=== PATIENT | female | born 1980 | race Hispanic/Latino ===

== ENCOUNTER 2022-07-23 03:54 | Emergency (ER) | payer SELFPAY ==
--- OUTSIDE RECORDS SUMMARY | 2022-07-23 03:59 | XMS REPORT | Continuity of Care Document ---
:1980 Author Organization [facility] t Address [address] [place] [address] Care Team Providers Name Role Phone Erin Maravilla Primary Care Physician [phone] ELIAZAR LÓPEZ Attending Clinician Unavailable Doctor Unassigned, [place] Attending Clinician Unavailable Rosemary German RN Attending Clinician Unavailable Pcp, Patient Does Not Have A Attending Clinician [phone] Lab, Adc Fam Pob I Attending Clinician Unavailable Yamilet Yap Attending Clinician Payers Payer Name Policy Type Policy Number Effective Date Expiration Date S ource Problems Condition Condition Condition Status Onset Resolution Last Treating Co mments Source Name Details Category Date Date Treatment Clinician Date Acute Acute Disease Active 2016-06 Univers cystitis cystitis 0-02 ity of without without 00:00: [place] hematuria hematuria 00 [facility] Branch Chlamydia Chlamydia Disease Active Uni vers trachomati trachomati 1-24 it y of s s 00:00: [place] infection infection 00 Medi leigh of lower of lower Branch genitourin genitourin aysha sites aysha sites 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 04/2015 LEEP with TIMBO III, needs annual pap for 20 years Dyspareuni Dyspareuni Disease Active 2015-06 U nivers a in a in 0-05 ity of female female 00:00: [place] 00 Medical Branch History of History of Disease Active U nivers tubal tubal 9-23 ity of ligation ligation 00:00: [address] Overweight Overweight Disease Active Overview : Univers -12 Formattin ity of 00:00: g of this [place] 00 note Medical might be Branch different from the original. ICD10 Diagnosis Term Chemistry Faculty Member Utility Allergies, Adverse Reactions, Alerts Allergy Allergy Status Severity Reaction(s) Onset Inactive Treating Comm ents Source Name Type Date Date Clinician NO KNOWN Drug Active Univers ALLERGIE Class ity of [facility] Social History Social Habit Start Date Stop Date Quantity Comments Source Exposure to Yes [facility] SARS-CoV-2 [facility] (event) Branch Tobacco use and 2016-09-18 2016-09-18 Never used Universit y of exposure 00:00:00 00:00:00 [facility] Alcohol intake 2016-09-18 2016-09-18 Current [facility] 00:00:00 00:00:00 non-drinker of [facility] alcohol Branch (finding) Sex Assigned At [birth year] Universit y of 00:00:00 00:00:00 [facility] Smoking Status Start Date Stop Date Source Never smoker [facility] Medications Ordered Filled Start Stop Current Ordering Indication Dosage Frequency Signature Comments Components Source Medication Medication Date Date Medication? Clinician (SIG) Name Name TAKE 1 No TABLET 9-26 DAILY. 00:00: 00 Dose 2021-0 No Unknown 8-12 00:00: 00 Dose 2021-0 No Unknown 8-12 00:00: 00 Dose 2021-0 No Unknown 6-04 00:00: 00 Dose 2021-0 No Unknown 6-04 00:00: 00 Dose 2021-0 No Unknown 6-04 00:00: 00 Dose 2021-0 No Unknown 6-04 00:00: 00 Dose 2022-0 No Unknown 6-02 00:00: 00 Dose 2-0 No Unknown 6-02 00:00: 00 Dose 2021-0 No Unknown 5-26 00:00: 00 Dose 2021-0 No Unknown 5-26 00:00: 00 Dose 2022-0 No Unknown 5-24 00:00: 00 Dose 2022-0 No Unknown 5-24 00:00: 00 Dose 2022-0 No Unknown 5-24 00:00: 00 Dose 2022-0 No Unknown 5-24 00:00: 00 Dose 2022-0 No Unknown 5-24 00:00: 00 Dose 2022-0 No Unknown 5-24 00:00: 00 Dose 2022-0 No Unknown 5-24 00:00: 00 Dose 2022-0 No Unknown 5-24 00:00: 00 Dose 2022-0 No Unknown 5-24 00:00: 00 Dose 2022-0 No Unknown 5-24 00:00: 00 Dose 2022-0 No Unknown 5-24 00:00: 00 Dose 2022-0 No Unknown 5-24 00:00: 00 Dose 2022-0 No Unknown 5-24 00:00: 00 Dose 2022-0 No Unknown 5-24 00:00: 00 Dose 2022-0 No Unknown 5-24 00:00: 00 Dose 2022-0 No Unknown 5-24 00:00: 00 Dose 2022-0 No Unknown 5-24 00:00: 00 Dose 2022-0 No Unknown 5-24 00:00: 00 triamcinolo 2021-0 No 1% ne 6-08 acetonide 00:00: 0.1 % 00 topical cream doxycycline 1-0 No 1mg monohydrate 6-08 100 mg 00:00: capsule 00 triamcinolo 2021-0 No 1% ne 6-08 acetonide 00:00: 0.1 % 00 topical cream doxycycline 1-0 No 1mg monohydrate 6-08 100 mg 00:00: capsule 00 Flagyl 500 1-0 No 1mg mg tablet 06-21 00:00: 00 Flagyl 500 1-0 No 1mg mg tablet 06-21 00:00: 00 Cipro 250 2020-0 No 1mg mg tablet 6 00:00: 00 Cipro 250 2020-0 No 1mg mg tablet 11-16 00:00: 00 ciprofloxac 2019-1 No 1mg in 500 mg 2-13 tablet 00:00: 00 ciprofloxac 2019-1 No 1mg in 500 mg 2-13 tablet 00:00: 00 Macrobid 2019-1 No 1mg 100 mg 1-23 capsule 00:00: 00 Macrobid 2019-1 No 1mg 100 mg 1-23 capsule 00:00: 00 phenazopyri 2019-1 No 1mg dine 200 mg 1-19 tablet 00:00: 00 phenazopyri 2019-1 No 1mg dine 200 mg 1-19 tablet 00:00: 00 ciprofloxac 2019-0 No 1mg in 500 mg 7-16 tablet 00:00: 00 ciprofloxac 2018-0 No 1mg in 500 mg 7-16 tablet 00:00: 00 cyclobenzap 2018-0 No 12mg rine 5 mg 1-22 tablet 00:00: 00 prednisone 2019-0 No mg 20 mg 1-22 tablet 00:00: 00 cyclobenzap 2018-0 No 12mg rine 5 mg 1-22 tablet 00:00: 00 prednisone 2019-0 No mg 20 mg 1-22 tablet 00:00: 00 nitrofurant 2017-06 No 1mg oin 0-12 monohydrate 00:00: /macrocryst 00 als 100 mg capsule nitrofurant 2017-06 No 1mg oin 0-12 monohydrate 00:00: /macrocryst 00 als 100 mg capsule cephalexin 2017-06 No 1mg 500 mg 0-10 capsule 00:00: 00 cephalexin 2017-06 No 1mg 500 mg 0-10 capsule 00:00: 00 Nitrofurant 2016-06 Yes 100mg Take 1 Uni vers oin&Nit. 0-07 capsule by ity o f Macrocryst 00[place]00[place] 00 (two) Medical capsule times Branch daily. Nitrofurant 2016-06 Yes 100mg Take 1 Uni vers oin&Nit. 0-07 capsule by ity o f Macrocryst 00:00: mouth [place] 100 mg 00 (two) Medical capsule times Branch daily. Nitrofurant 2016-06 Yes 100mg Take 1 Uni vers oin&Nit. 0-07 capsule by ity o f Macrocryst 00:00: mouth [place] 100 mg 00 (two) Medical capsule times Branch daily. Nitrofurant 2016-06 Yes 100mg Take 1 Uni vers oin&Nit. 0-07 capsule by ity o f Macrocryst 00:00: mouth [place] 100 mg 00 (two) Medical capsule times Branch daily. Nitrofurant 2016-06 Yes 100mg Take 1 Uni vers oin&Nit. 0-07 capsule by ity o f Macrocryst 00:00: mouth [place] 100 mg 00 (two) Medical capsule times Branch daily. sulfamethox Yes [id number] Take twice Univers azole-trime 4-12 daily for ity of thoprim 00:00: 10 days [place] 800-160 mg 00 Medical per tablet Branch sulfamethox 2017-0 Yes [id number] Take twice Univers azole-trime 4-12 daily for ity of thoprim 00:00: 10 days [place] 800-160 mg 00 Medical per tablet Branch sulfamethox 2017-0 Yes [id number] Take twice Univers azole-trime 4-12 daily for ity of thoprim 00:00: 10 days [place] 800-160 mg 00 Medical per tablet Branch sulfamethox 2017-0 Yes [id number] Take twice Univers azole-trime 4-12 daily for ity of thoprim 00:00: 10 days [place] 800-160 mg 00 Medical per tablet Branch sulfamethox 20170 Yes [id number] Take twice Univers azole-trime 4-12 daily for ity of thoprim 00:00: 10 days [place] 800-160 mg 00 Medical per tablet Branch norethindro 20170 Yes [id number] 1{tbl} Take 1 Univers ne-e.estrad 4-10 tablet by ity of iol-iron 00:00: mouth [place] (MICROGESTI 00 daily. Medica l N FE) 1.5 Branch mg-30 mcg (21)/75 mg (7) per tablet norethindro 0 Yes [id number] 1{tbl} Take 1 Univers ne-e.estrad 4-10 tablet by ity of iol-iron 00:00: mouth [place] (MICROGESTI 00 daily. Medica l N FE) 1.5 Branch mg-30 mcg (21)/75 mg (7) per tablet norethindro Yes [id number] 1{tbl} Take 1 Univers ne-e.estrad 4-10 tablet by ity of iol-iron 00:00: mouth [place] (MICROGESTI 00 daily. Medica l N FE) 1.5 Branch mg-30 mcg (21)/75 mg (7) per tablet norethindro Yes [id number] 1{tbl} Take 1 Univers ne-e.estrad 4-10 tablet by ity of iol-iron 00:00: mouth [place] (MICROGESTI 00 daily. Medica l N FE) 1.5 Branch mg-30 mcg (21)/75 mg (7) per tablet norethindro 2017- Yes [id number] 1{tbl} Take 1 Univers ne-e.estrad 4-10 tablet by ity of iol-iron 00:00: mouth [place] (MICROGESTI 00 daily. Medica l N FE) 1.5 Branch mg-30 mcg (21)/75 mg (7) per tablet Norethindro 2017- Yes [id number] 1{tbl} Take 1 Univers ne 1-03 tablet by ity of Acet-Ethiny 00:00: mouth [place] l Est 00 daily. Medical ([facility] , ,) 1.5-30 mg-mcg per tablet Norethindro 2017- Yes [id number] 1{tbl} Take 1 Univers ne 1-03 tablet by ity of Acet-Ethiny 00:00: mouth [place] l Est 00 daily. Medical ([facility] , ,) 1.5-30 mg-mcg per tablet Norethindro 2017 Yes [id number] 1{tbl} Take 1 Univers ne 1-03 tablet by ity of Acet-Ethiny 00:00: mouth [place] l Est 00 daily. Medical ([facility] , ,) 1.5-30 mg-mcg per tablet Norethindro 2017- Yes [id number] 1{tbl} Take 1 Univers ne 1-03 tablet by ity of Acet-Ethiny 00:00: mouth [place] l Est 00 daily. Medical ([facility] , ,) 1.5-30 mg-mcg per tablet Norethindro 2017- Yes [id number] 1{tbl} Take 1 Univers ne 1-03 tablet by ity of Acet-Ethiny 00:00: mouth [place] l Est 00 daily. Medical ([facility] , ,) 1.5-30 mg-mcg per tablet Immunizations Ordered Filled Immunization Date Status Comments [facility] e Immunization Name Name Sharron COVID-19 2020-10-05 Completed Vaccine 00:00:00 Moderna COVID-19 2020-10-05 Completed Vaccine 00:00:00 Moderna COVID-19 2020-09-02 Completed Vaccine 00:00:00 Moderna COVID-19 2020-09-02 Completed Vaccine 00:00:00 Influenza, 2020-06-18 Completed seasonal, inj 00:00:00 Influenza, 2020-06-18 Completed seasonal, inj 00:00:00 Tdap 2018-03-20 Completed 00:00:00 Tdap 2018-03-20 Completed 00:00:00 TDAP 2014-02-20 [facility] Completed [facility] 00:00:00 [facility] Vital Signs Vital Name Observation Time Observation Value Comments Source BP Systolic 2022-03-15 16:06:00 123 mm[Hg] BP Diastolic 2022-03-15 16:06:00 83 mm[Hg] Weight Measured 2022-03-15 16:06:00 148.80 pounds Height Measured 2022-03-15 16:06:00 63.00 inches Body Temperature 2022-03-15 16:06:00 97.20 degrees Heart Rate 2022-03-15 16:06:00 79.00 /min Respiratory Rate 2022-03-15 16:06:00 19.00 /min BP Systolic 2022-03-03 12:09:00 121 mm[Hg] BP Diastolic 2022-03-03 12:09:00 86 mm[Hg] Weight Measured 2022-03-03 12:09:00 152.00 pounds Height Measured 2022-03-03 12:09:00 63.00 inches Body Temperature 2022-03-03 12:09:00 98.30 degrees Heart Rate 2022-03-03 12:09:00 89.00 /min Respiratory Rate 2022-03-03 12:09:00 18.00 /min Height Measured 2021-11-19 14:13:00 63.00 inches Body Temperature 2021-11-19 14:13:00 97.90 degrees Heart Rate 2021-11-19 14:13:00 85.00 /min Respiratory Rate 2021-11-19 14:13:00 BP Systolic 2021-11-19 14:13:00 125 mm[Hg] BP Diastolic 2021-11-19 14:13:00 85 mm[Hg] Weight Measured 2021-11-19 14:13:00 151.20 pounds BP Systolic 2021-11-01 08:42:00 125 mm[Hg] BP Diastolic 2021-11-01 08:42:00 86 mm[Hg] Weight Measured 2021-11-01 08:42:00 150.40 pounds Height Measured 2021-11-01 08:42:00 63.00 inches Body Temperature 2021-11-01 08:42:00 98.30 degrees Heart Rate 2021-11-01 08:42:00 70.00 /min Respiratory Rate 2021-11-01 08:42:00 18.00 /min BP Systolic 2020-11-16 10:16:00 130 mm[Hg] BP Diastolic 2020-11-16 10:16:00 83 mm[Hg] Weight Measured 2020-11-16 10:16:00 145.80 pounds Height Measured 2020-11-16 10:16:00 63.00 inches Body Temperature 2020-11-16 10:16:00 98.00 degrees Heart Rate 2020-11-16 10:16:00 59.00 /min Respiratory Rate 2020-11-16 10:16:00 18.00 /min BP Systolic 2020-06-21 15:07:00 124 mm[Hg] BP Diastolic 2020-06-21 15:07:00 82 mm[Hg] Weight Measured 2020-06-21 15:07:00 148.40 pounds Height Measured 2020-06-21 15:07:00 63.00 inches Body Temperature 2020-06-21 15:07:00 98.20 degrees Heart Rate 2020-06-21 15:07:00 Respiratory Rate 2020-06-21 15:07:00 BP Systolic 2020-06-18 15:33:00 133 mm[Hg] BP Diastolic 2020-06-18 15:33:00 90 mm[Hg] Weight Measured 2020-06-18 15:33:00 146.20 pounds Height Measured 2020-06-18 15:33:00 63.00 inches Body Temperature 2020-06-18 15:33:00 98.00 degrees Heart Rate 2020-06-18 15:33:00 95.00 /min Respiratory Rate 2020-06-18 15:33:00 16.00 /min BP Systolic 2019-11-17 09:43:00 124 mm[Hg] BP Diastolic 2019-11-17 09:43:00 80 mm[Hg] Weight Measured 2019-11-17 09:43:00 147.20 pounds Height Measured 2019-11-17 09:43:00 63.00 inches Body Temperature 2019-11-17 09:43:00 98.40 degrees Heart Rate 2019-11-17 09:43:00 69.00 /min Respiratory Rate 2019-11-17 09:43:00 16.00 /min BP Systolic 2019-08-22 15:52:00 138 mm[Hg] BP Diastolic 2019-08-22 15:52:00 95 mm[Hg] Weight Measured 2019-08-22 15:52:00 143.20 pounds Height Measured 2019-08-22 15:52:00 63.00 inches Body Temperature 2019-08-22 15:52:00 98.90 degrees Heart Rate 2019-08-22 15:52:00 83.00 /min Respiratory Rate 2019-08-22 15:52:00 16.00 /min BP Systolic 2019-08-18 11:43:00 124 mm[Hg] BP Diastolic 2019-08-18 11:43:00 72 mm[Hg] Weight Measured 2019-08-18 11:43:00 145.80 pounds Height Measured 2019-08-18 11:43:00 63.00 inches Body Temperature 2019-08-18 11:43:00 98.00 degrees Heart Rate 2019-08-18 11:43:00 74.00 /min Respiratory Rate 2019-08-18 11:43:00 16.00 /min BP Systolic 2019-04-29 16:30:00 128 mm[Hg] BP Diastolic 2019-04-29 16:30:00 79 mm[Hg] Weight Measured 2019-04-29 16:30:00 145.20 pounds Height Measured 2019-04-29 16:30:00 63.00 inches Body Temperature 2019-04-29 16:30:00 99.20 degrees Heart Rate 2019-04-29 16:30:00 93.00 /min Respiratory Rate 2019-04-29 16:30:00 Procedures Procedure Date / Time Performed Performing Clinician [facility] e REFERRAL- 2020-11-16 05:01:00 Doctor Unassigned, No Univer mary lou [facility] REQUEST/RESPONSE Name Medical Branch Plan of Care Planned Activity Planned Date Details Comments Source Goal Plan of Care Note [code = 48685-8] Goal Plan of Care Note [code = 49413-7] Goal Plan of Care Note [code = 37110-5] Goal Plan of Care Note [code = 99896-6] Goal Plan of Care Note [code = 01755-7] Goal Plan of Care Note [code = 48923-8] Goal Plan of Care Note [code = 19315-8] Goal Plan of Care Note [code = 86050-7] Goal Plan of Care Note [code = 40165-8] Goal Plan of Care Note [code = 07177-7] Goal Plan of Care Note [code = 17008-0] Goal Plan of Care Note [code = 44006-1] Goal Plan of Care Note [code = 85587-8] Goal Plan of Care Note [code = 10569-4] Goal Plan of Care Note [code = 51665-8] Goal Plan of Care Note [code = 45959-1] Goal Plan of Care Note [code = 11239-0] Goal Plan of Care Note [code = 11394-0] Goal Plan of Care Note [code = 37403-3] Goal Plan of Care Note [code = 16957-4] Goal Plan of Care Note [code = 78201-7] Goal Plan of Care Note [code = 79540-5] Goal Plan of Care Note [code = 81723-7] Goal Plan of Care Note [code = 50850-3] Goal Plan of Care Note [code = 71481-5] Goal Plan of Care Note [code = 45006-0] Goal Plan of Care Note [code = 74071-6] Goal Plan of Care Note [code = 64566-6] Goal Plan of Care Note [code = 64203-3] Goal Plan of Care Note [code = 06384-6] Goal Plan of Care Note [code = 95682-4] Goal Plan of Care Note [code = 31878-1] Goal Plan of Care Note [code = 55790-8] Goal Plan of Care Note [code = 93568-9] Goal Plan of Care Note [code = 18094-1] Goal Plan of Care Note [code = 67889-1] Goal Plan of Care Note [code = 13740-1] Goal Plan of Care Note [code = 87452-9] Goal Plan of Care Note [code = 42899-6] Goal Plan of Care Note [code = 24451-6] Goal Plan of Care Note [code = 65777-3] Goal Plan of Care Note [code = 15730-4] Goal Plan of Care Note [code = 12794-5] Goal Plan of Care Note [code = 94202-8] Goal Plan of Care Note [code = 87072-3] Goal Plan of Care Note [code = 12155-8] Goal Plan of Care Note [code = 42951-5] Goal Plan of Care Note [code = 41750-0] Goal Plan of Care Note [code = 78537-9] Goal Plan of Care Note [code = 96730-8] Goal Plan of Care Note [code = 50587-3] Goal Plan of Care Note [code = 02677-9] Goal Plan of Care Note [code = 24662-7] Goal Plan of Care Note [code = 98759-4] Goal Plan of Care Note [code = 58002-7] Goal Plan of Care Note [code = 22866-0] Goal Plan of Care Note [code = 45977-2] Goal Plan of Care Note [code = 11419-8] Goal Plan of Care Note [code = 81587-0] Goal Plan of Care Note [code = 69616-3] Goal Plan of Care Note [code = 80713-6] Goal Plan of Care Note [code = 97323-0] Encounters Start End Encounter Admission Attending Care Care Encounter Source Date/Time Date/Time Type Type Clinicians Facility Department ID 2022-05-01 2022-05-01 Outpatient ADEEL DENIS [id number] [place] 08:49:56 08:49:56 [address] 2022-03-15 2022-03-15 Outpatient ADEEL DENIS [id number] [place] 16:05:15 16:05:15 [address] 2022-03-15 2022-03-15 Outpatient [id number] 00:00:00 00:00:00 Visit [id number] 2022-03-03 2022-03-03 Outpatient [id number] 00:00:00 00:00:00 Visit [id number] 2020-11-23 2020-11-23 Outpatient Monika LÓPEZ [facility] [id number] Univers 14:15:00 14:15:00 ELIAZAR varma [facility] 2020-11-16 2020-11-16 Orders Doctor TAYLOR [id number] Univers 00:00:00 00:00:00 Only Unassigned, RUSSELL 350.1.13.10 ity of [place] [facility] 4.2.7.2.686 Yousif as [phone] [address] 2020-08-25 2020-08-25 Letter TAYLOR [id number] Univers 00:00:00 00:00:00 (Out) Rosemary WELLS 350.1.13.10 it y of HOSPITAL 4.2.7.2.686 Yousif as [id number] [address] 2020-08-25 2020-08-25 Letter TAYLOR German.[id number] Univers 00:00:00 00:00:00 (Out) Rosemary T RUSSELL 350.1.13.10 it y of HOSPITAL 4.2.7.2.686 Yousif as [id number] [address] 2020-08-25 2020-08-25 Telephone [id number] Univers 00:00:00 00:00:00 Patient RUSSELL 350.1.13.10 it y of Does Not [place]OSP[place] [phone] [address] 2020-08-23 2020-08-23 Laboratory Lab, Adc Fam Pob I [facility] 1.2. [id number] [id number] Univers 17:02:55 17:22:55 Only Yamilet Nixon 350.1.13.[address] [facility] 4.2.7.2.686 Yousif as Profdoyleio [id number] Pr dical [place] [address] [address] 2020-08-23 2020-08-23 Outpatient R [facility] [id number] Univers 17:00:00 17:00:00 [facility] Results Test Description Test Time Test Comments Results Result Sour e Comments BREAST ULTRASOUND 2022-04-19 BILATERAL 13:46:37 Name: , Tata Mancia : 1980 Sex: F - BREAST ULTRASOUND BILATERALCOMPLETE ULTRASOUND OF BOTH BREASTS AND AXILLA: 2CLINICAL: Screening recall,bilateral. Comparison is made to exam dated 03/03/2022 mammogram - [facility]. Color flow and real-time ultrasound of both breasts four quadrants, retroareolar, and axilla regions were performed. The breast tissue has heterogenous background echotexture. Bilateral survey ultrasound demonstrates multiple similar appearing solid oval masses the largest one in the left breast at 7:00, 2 cm on nipple that measures 18 x 14 x 8 mm characteristics include oval shape, circumscribed margins, hypoechoic echogenicity but no internal vascularity. No axillary lymphadenopathy.IMPRESS ION: PROBABLY BENIGN Multiple oval, circumscribed similar appearing solid oval masses in both breasts on this baseline examination. BI-RADS 3. A follow-up ultrasound in 6 months is recommended to demonstrate stability. (10/19/2022) Naun Diamond M.D. ss/:04/19/2022 13:46:37 Entry: sj - 04/19/2022 14:34:16Imaging Technologist: Ashley Benitez FW, [facility]-FWletter sent: Short Term Follow Up Ultrasound BI-RADS: 3 Probably benign SCR MAMM 2022-03-06 BILATERAL REINALDO 10:01:13 CAD DIGITAL Name: Tata : 1980 Sex: F - SCR MAMM BILATERAL REINALDO CAD DIGITALBILATERAL FIRST EVER DIGITAL SCREENING MAMMOGRAM 3D/2D WITH CAD: 03/03/2022LINICAL: Asymptomatic. Digital breast tomosynthesis was performed in addition to routine CC and MLO views. Current mammographic images were evaluated by [employer] CAD (computer-aided detection) software. No prior exams were available for comparison. There are scattered fibroglandular tissues in both breasts. There are bilateral circumscribed low density masses.No spiculated mass, architectural distortion, malignant type calcification, or lymph node abnormality detected. IMPRESSION: INCOMPLETE: ADDITIONAL IMAGING EVALUATION NEEDEDThe bilateral circumscribed masses are indeterminate. Recommend bilateral breast ultrasound and possible additional views.Ayla Shankar M.D. [facility]/:03/06/2022 10:01:13 Crate Repairer: Colleen Cervantes MM, [facility] sent: Additional Imaging Mammogram BI-RADS: 0 Incomplete: Additional Imaging Evaluation Needed PAP TEST, THINPREP, IMAGED 2021-11-24 07:45:29 Test Item Value Reference Range Interpretation Comme nts SOURCE: (test code = Cervical/Endocervical 8001) SLIDES: (test code = 1 8011) LMP: (test code = 10/25/2021 8021) SPECIMEN ADEQUACY: (NOTE) Satisfac tory for (test code = 72210) evaluati on. Endocervical cells/transform ation zone component not i dentified. INTERPRETATION: NILM/NO EPITH. ABNORMALITY;SEE (test code = 94772) BELOW -------- NEGATIVE FOR INTRAEPITHE LIAL LESION OR MALIGNANCY ( NILM) -- OTHER COMMENTS: (NOTE) The absence of endocervical (test code = 8081) cells is confirmed by a seniorcytotechn ologist. RADIO ELECTRICIAN: SYED Samayoa (ASCP) (test code = 8101) QC TECHNOLOGIST: SYED Chiu(ASCP)IAC (test code = 8111) LOCATION: (test code (NOTE) Specime ns processed and = 04016) [facility], [address] [place] [id number], Phone: , CLIA: [id number] CPT: (test code = (NOTE) 41467 UNLE SS OTHERWISE 8140) INDICATED, COMP UTER AIDED AND CYTOTECHNOL OGIST SCREENING PERFO RMED. The Pap test is a scree claudy test with an inheren t, but low probability of error. Your patient should be reminded to consult you immediately if she experien aggie any suspicious sign s or symptoms, regar dless of her Pap test result . An alternate repor t format containing imag es or consolidated pr ior Pap history is kalyan moran as applicable. PAP TEST, THINPREP, [id number] 00:00:00 Test Item Value Reference Range Interpretation Comments SOURCE: (test code = Cervical/Endocervical 800) SLIDES: (test code = 1 8011) LMP: (test code = 8021) 10/25/2021 SPECIMEN ADEQUACY: (NOTE) (test code = 98271) INTERPRETATION: (test NILM/NO EPITH. code = 90387) ABNORMALITY;SEE BELOW OTHER COMMENTS: (test (NOTE) code = 8081) RADIO ELECTRICIAN: (test Ayla Mayorga CT (ASCP) code = 8101) QC TECHNOLOGIST: (test Carlos code = 8111) SYED Zamudio(ASCP)IAC LOCATION: (test code = (NOTE) 42375) CPT: (test code = 8140) (NOTE) PAP TEST, THINPREP, [id number] 00:00:00 Test Item Value Reference Range Interpretation Comments SOURCE: (test code = Cervical/Endocervical 8001) SLIDES: (test code = 1 8011) LMP: (test code = 8021) 10/25/2021 SPECIMEN ADEQUACY: (NOTE) (test code = 42714) INTERPRETATION: (test NILM/NO EPITH. code = 11173) ABNORMALITY;SEE BELOW OTHER COMMENTS: (test (NOTE) code = 8081) RADIO ELECTRICIAN: (test SYED Samayoa (ASCP) code = 8101) QC TECHNOLOGIST: (test Carlos code = 8111) SYED Zamudio(ASCP)IAC LOCATION: (test code = (NOTE) 37201) CPT: (test code = 8140) (NOTE) PAP TEST, THINPREP, [id number] 00:00:00 Test Item Value Reference Range Interpretation Comments SOURCE: (test code = Cervical/Endocervical 8001) SLIDES: (test code = 1 8011) LMP: (test code = 8021) 10/25/2021 SPECIMEN ADEQUACY: (NOTE) (test code = 96624) INTERPRETATION: (test NILM/NO EPITH. code = 45376) ABNORMALITY;SEE BELOW OTHER COMMENTS: (test (NOTE) code = 8081) RADIO ELECTRICIAN: (test SYED Samayoa (ASCP) code = 8101) QC TECHNOLOGIST: (test Carlos code = 8111) SYED Zamudio(ASCP)IAC LOCATION: (test code = (NOTE) 50787) CPT: (test code = 8140) (NOTE) PAP TEST, THINPREP, [id number] 00:00:00 Test Item Value Reference Range Interpretation Comments SOURCE: (test code = Cervical/Endocervical 8001) SLIDES: (test code = 1 8011) LMP: (test code = 8021) 10/25/2021 SPECIMEN ADEQUACY: (NOTE) (test code = 99400) INTERPRETATION: (test NILM/NO EPITH. code = 88525) ABNORMALITY;SEE BELOW OTHER COMMENTS: (test (NOTE) code = 8081) RADIO ELECTRICIAN: (test Ayla Mayorga CT (ASCP) code = 8101) QC TECHNOLOGIST: (test Carlos code = 8111) SYED Zamudio(ASCP)IAC LOCATION: (test code = (NOTE) 18498) CPT: (test code = 8140) (NOTE) HPV HIGH RISK WITH GENOTYPE, [id number] 16:09:13 Test Item Value Reference Range Interpretation Comments HPV HIGH RISK INTERP NEGATIVE NEGATIVE (test code = 63864) HPV 16 (test code = NEGATIVE 80396) HPV 18 (test code = NEGATIVE 62093) HPV, HR, OTHER NEGATIVE Testing meth odology is GENOTYPES (test code real-ti me PCR utilizing = 44426) hydrolysis prob es with the [employer] 4800 system. The aicha t individually de tects genotypes 16 an d 18, as well as the oth er 12 high risk types (31,33,35,39,45 ,51,52,56 ,58,59,66,68). The expected result is negative. A neg ative result does not rule out the presence of HPV not included in the genotype set, a low leve l of infection or sp ecimen sampling error. UNLESS OTHERWISE INDIC ATED, ALL TESTING PERFORM ED ATCLINICAL PATH [facility] [place] [address] [place] [id number] LABORATORY DIRE CTOR: RACHELL KRISHNA M.D. CLIA NUMBER [id number] [facility] [place] [id number] VAGINAL PATHOGENS DNA [id number] 14:08:33 Test Item Value Reference Range Interpretation Comments IVONE SPECIES (test NEGATIVE NEGATIVE code = ) G. VAGINALIS (test NEGATIVE NEGATIVE code = ) T. VAGINALIS (test NEGATIVE NEGATIVE UNLESS O THERWISE code = ) INDICATED, ALL TESTING PERFORMED [facility] [address] [place] [address] 78 4 LABORATORY DIRE CTOR: RACHELL KRISHNA M.D. CLIA NUMBER [id number] [place]. [id number] VAGINAL PATHOGENS DNA [id number] 00:00:00 Test Item Value Reference Range Interpretation Comments IVONE SPECIES (test code = ) NEGATIVE G. VAGINALIS (test code = 25194) NEGATIVE T. VAGINALIS (test code = ) NEGATIVE VAGINAL PATHOGENS DNA [id number] 00:00:00 Test Item Value Reference Range Interpretation Comments IVONE SPECIES (test code = ) NEGATIVE G. VAGINALIS (test code = 47806) NEGATIVE T. VAGINALIS (test code = ) NEGATIVE HPV HIGH RISK WITH GENOTYPE, [id number] 00:00:00 Test Item Value Reference Range Interpretation Comments HPV HIGH RISK INTERP (test code = NEGATIVE 08349) HPV 16 (test code = 22066) NEGATIVE HPV 18 (test code = 12438) NEGATIVE HPV, HR, OTHER GENOTYPES (test code NEGATIVE = 79258) HPV HIGH RISK WITH GENOTYPE, [id number] 00:00:00 Test Item Value Reference Range Interpretation Comments HPV HIGH RISK INTERP (test code = NEGATIVE 53262) HPV 16 (test code = 41590) NEGATIVE HPV 18 (test code = 24679) NEGATIVE HPV, HR, OTHER GENOTYPES (test code NEGATIVE = 19079) VAGINAL PATHOGENS DNA [id number] 00:00:00 Test Item Value Reference Range Interpretation Comments IVONE SPECIES (test code = ) NEGATIVE G. VAGINALIS (test code = ) NEGATIVE T. VAGINALIS (test code = ) NEGATIVE VAGINAL PATHOGENS DNA [id number] 00:00:00 Test Item Value Reference Range Interpretation Comments IVONE SPECIES (test code = ) NEGATIVE G. VAGINALIS (test code = 66605) NEGATIVE T. VAGINALIS (test code = ) NEGATIVE HPV HIGH RISK WITH GENOTYPE, [id number] 00:00:00 Test Item Value Reference Range Interpretation Comments HPV HIGH RISK INTERP (test code = NEGATIVE 33183) HPV 16 (test code = 12429) NEGATIVE HPV 18 (test code = 21786) NEGATIVE HPV, HR, OTHER GENOTYPES (test code NEGATIVE = 26643) HPV HIGH RISK WITH GENOTYPE, [id number] 00:00:00 Test Item Value Reference Range Interpretation Comments HPV HIGH RISK INTERP (test code = NEGATIVE 92849) HPV 16 (test code = 93004) NEGATIVE HPV 18 (test code = 86819) NEGATIVE HPV, HR, OTHER GENOTYPES (test code NEGATIVE = 14166) HEMOGLOBIN [id number] 06:34:28 Test Item Value Reference Range Interpretation Comments HEMOGLOBIN A1c (test code = 33781) 5.6 % 4.2-5.6 CBC W/AUTO DIFF WITH [id number] 06:03:56 Test Item Value Reference Range Interpretation Comments WBC (test code = 5.6 K/UL 3.5-11.0 1001) RBC (test code = 4.64 M/UL 3.80-5.40 1002) HEMOGLOBIN (test code 13.6 G/DL 11.5-15.5 = 1003) HEMATOCRIT (test code 39.5 % 34.0-45.0 = 1004) MCV (test code = 85.1 fL 80.0-99.0 1005) MCH (test code = 29.3 PG 25.0-33.0 1006) MCHC (test code = 34.4 G/DL 31.0-36.0 1007) RDW (test code = 12.7 % 11.5-15.0 1038) NEUTROPHILS (test 46.6 % code = 1008) LYMPHOCYTES (test 41.2 % code = 1010) MONOCYTES (test code 6.3 % = 1011) EOSINOPHILS (test 5.0 % code = 1012) BASOPHILS (test code 0.7 % = 1013) IMMATURE GRANULOCYTES 0.2 % (test code = 1036) NUCLEATED RBCS (test 0.0 /100 WBC'S See_Comment [Aut omated code = 1065) message] The sy stem which generated this result transmitted reference range : 0.0. The refere nce range was not u sed to interpret th is result as normal/abnormal . PLATELET COUNT (test 225 K/UL 130-400 code = 1015) ABSOLUTE NEUTROPHILS 2.59 K/UL 1.50-7.50 (test code = 1066) ABSOLUTE LYMPHOCYTES 2.29 K/UL 1.00-4.00 (test code = 1067) ABSOLUTE MONOCYTES 0.35 K/UL 0.20-1.00 (test code = 1068) ABSOLUTE EOSINOPHILS 0.28 K/UL 0.00-0.50 (test code = 1040) ABSOLUTE BASOPHILS 0.04 K/UL 0.00-0.20 (test code = 1069) ABS IMMATURE 0.01 K/UL 0.00-0.10 GRANULOCYTES (test code = 1020) ABS NUCLEATED RBCS 0.00 K/UL 0.00-0.11 (test code = 43887) LIPID [id number] 05:55:49 Test Item Value Reference Range Interpretation Comments CHOLESTEROL (test 193 MG/DL <200 code = 2210) TRIGLYCERIDES (test 134 MG/DL <150 code = 2232) HDL CHOLESTEROL (test 45 MG/DL >39 code = 2220) CALC LDL CHOL (test 123 MG/DL <100 H NOTE: C ALCULATED LDL code = 2237) IS BASED ON IAN-COHEN METHOD WHICHINCLUDES ADJUSTABLE TRIGLYCERIDE:VL DL CHOLESTEROL RAT IO.THIS FACTOR VARIES B Y MEASURED TRIGLY CERIDE AND NON-HDLCHOL ESTEROL CONCENTRATIONS WITH INCREASED CALCU LATED LDL SEENIN HIGH ER TRIGLYCERIDE OR LOWER NON-HDL SPECIME NS. FOR MOREINFORMATION , SEE CLIENT ANNOUNCE MENT AT [email or web address] RISK RATIO LDL/HDL 2.73 RATIO <3.22 (test code = 2238) COMPREHENSIVE METABOLIC [id number] 05:55:49 Test Item Value Reference Range Interpretation Comments GLUCOSE (test code = 96 MG/DL 70-99 2216) BUN (test code = 15 MG/DL 6-20 2207) CREATININE (test 0.84 MG/DL 0.60-1.30 code = 2214) eGFR (2020 CKD-EPI) 89 ML/MIN/1.73 >60 (test code = 39627) CALC BUN/CREAT (test 18 RATIO 6-28 code = 2235) SODIUM (test code = 142 MEQ/L 645-926 8223) POTASSIUM (test code 4.5 MEQ/L 3.5-5.4 = 2227) CHLORIDE (test code 106 MEQ/L 95-107 = 2214) CARBON DIOXIDE (test 24 MEQ/L 19-31 code = 2206) CALCIUM (test code = 9.2 MG/DL 8.5-10.5 2208) PROTEIN, TOTAL (test 7.5 G/DL 6.1-8.3 code = 2229) ALBUMIN (test code = 4.5 G/DL 3.5-5.2 220) CALC GLOBULIN (test 3.0 G/DL 1.9-3.7 code = 2240) CALC A/G RATIO (test 1.5 RATIO 1.0-2.6 code = 2234) BILIRUBIN, TOTAL 0.6 MG/DL See_Comment [Automated message] (test code = 2207) The syste m which generated this result transmit sherry reference range : <=1.2. The refe rence range was not u sed to interpret th is result as normal/abnormal . ALKALINE PHOSPHATASE 68 U/L 40-113 (test code = 2204) AST (test code = 23 U/L 9-40 2217) ALT (test code = 24 U/L 5-40 2218) [id number] 05:11:05 Test Item Value Reference Range Interpretation Comments RPR RESULT (test NON-REACTIVE NON-REACTIVE code = 3501) RPR TITER (test NOT INDIC. NOT INDIC. UNLESS OTHE RWISE code = 3500) TITER INDICATED, ALL TESTING PERFORMED [facility] [address] [place] [address] 4 LABORATORY DIRE CTOR: RACHELL KRISHNA M.D. CLIA NUMBER [id number] [place] [id number] HIV 1/2 4TH GEN, RFLX [id number] 04:59:08 Test Item Value Reference Range Interpretation Comments HIV 1/2 4TH GEN, RFLX CONF (test NON-REACTIVE NON-REACTIVE code = 3514) HEPATITIS PANEL, [id number] 04:59:08 Test Item Value Reference Range Interpretation Comments HEPATITIS A IgM (test NON-REACTIVE NON-REACTIVE code = 70473) HEPATITIS B CORE IgM NON-REACTIVE NON-REACTIVE (test code = 4644) HEPATITIS B SURF AG NON-REACTIVE NON-REACTIVE (test code = 2739) HEPATITIS C ANTIBODY NON-REACTIVE NON-REACTIVE (test code = 4675) INTERPRETATION (NOTE) Hepatitis A HEPATITIS A: (test code sero logy shows no = 9442) evidence of acu te hepatitis A. INTERPRETATION (NOTE) Hepatitis B HEPATITIS B: (test code sero logy shows no = 58507) evidence of acu te hepatitis B and no indication of exposure to hepatitis B vir us in the previous juno eight months. INTERPRETATION (NOTE) Hepatitis C HEPATITIS C: (test code sero logy shows no = 65059) evidence of exposure to hepatitisC viru s at this time. I t can take up to 12 months after exposure tothe hepatitis C vir us for antibodies to become detectab le in the blood in certain patient s. CBC W/AUTO [id number] 00:00:00 Test Item Value Reference Range Interpretation Comments WBC (test code = 1001) 5.6 K/UL RBC (test code = 1002) 4.64 M/UL HEMOGLOBIN (test code = 1003) 13.6 G/DL HEMATOCRIT (test code = 1004) 39.5 % MCV (test code = 1005) 85.1 fL MCH (test code = 1006) 29.3 PG MCHC (test code = 1007) 34.4 G/DL RDW (test code = 1038) 12.7 % NEUTROPHILS (test code = 1008) 46.6 % LYMPHOCYTES (test code = 1010) 41.2 % MONOCYTES (test code = 1011) 6.3 % EOSINOPHILS (test code = 1012) 5.0 % BASOPHILS (test code = 1013) 0.7 % IMMATURE GRANULOCYTES (test 0.2 % code = 1036) NUCLEATED RBCS (test code = 0.0 /100WBC'S 1065) PLATELET COUNT (test code = 225 K/UL 1015) ABSOLUTE NEUTROPHILS (test code 2.59 K/UL = 1066) ABSOLUTE LYMPHOCYTES (test code 2.29 K/UL = 1067) ABSOLUTE MONOCYTES (test code = 0.35 K/UL 1068) ABSOLUTE EOSINOPHILS (test code 0.28 K/UL = 1040) ABSOLUTE BASOPHILS (test code = 0.04 K/UL 1069) ABS IMMATURE GRANULOCYTES (test 0.01 K/UL code = 1020) ABS NUCLEATED RBCS (test code = 0.00 K/UL 14542) CBC W/AUTO [id number] 00:00:00 Test Item Value Reference Range Interpretation Comments WBC (test code = 1001) 5.6 K/UL RBC (test code = 1002) 4.64 M/UL HEMOGLOBIN (test code = 1003) 13.6 G/DL HEMATOCRIT (test code = 1004) 39.5 % MCV (test code = 1005) 85.1 fL MCH (test code = 1006) 29.3 PG MCHC (test code = 1007) 34.4 G/DL RDW (test code = 1038) 12.7 % NEUTROPHILS (test code = 1008) 46.6 % LYMPHOCYTES (test code = 1010) 41.2 % MONOCYTES (test code = 1011) 6.3 % EOSINOPHILS (test code = 1012) 5.0 % BASOPHILS (test code = 1013) 0.7 % IMMATURE GRANULOCYTES (test 0.2 % code = 1036) NUCLEATED RBCS (test code = 0.0 /100WBC'S 1065) PLATELET COUNT (test code = 225 K/UL 1015) ABSOLUTE NEUTROPHILS (test code 2.59 K/UL = 1066) ABSOLUTE LYMPHOCYTES (test code 2.29 K/UL = 1067) ABSOLUTE MONOCYTES (test code = 0.35 K/UL 1068) ABSOLUTE EOSINOPHILS (test code 0.28 K/UL = 1040) ABSOLUTE BASOPHILS (test code = 0.04 K/UL 1069) ABS IMMATURE GRANULOCYTES (test 0.01 K/UL code = 1020) ABS NUCLEATED RBCS (test code = 0.00 K/UL 92025) CBC W/AUTO [id number] 00:00:00 Test Item Value Reference Range Interpretation Comments WBC (test code = 1001) 5.6 K/UL RBC (test code = 1002) 4.64 M/UL HEMOGLOBIN (test code = 1003) 13.6 G/DL HEMATOCRIT (test code = 1004) 39.5 % MCV (test code = 1005) 85.1 fL MCH (test code = 1006) 29.3 PG MCHC (test code = 1007) 34.4 G/DL RDW (test code = 1038) 12.7 % NEUTROPHILS (test code = 1008) 46.6 % LYMPHOCYTES (test code = 1010) 41.2 % MONOCYTES (test code = 1011) 6.3 % EOSINOPHILS (test code = 1012) 5.0 % BASOPHILS (test code = 1013) 0.7 % IMMATURE GRANULOCYTES (test 0.2 % code = 1036) NUCLEATED RBCS (test code = 0.0 /100WBC'S 1065) PLATELET COUNT (test code = 225 K/UL 1015) ABSOLUTE NEUTROPHILS (test code 2.59 K/UL = 1066) ABSOLUTE LYMPHOCYTES (test code 2.29 K/UL = 1067) ABSOLUTE MONOCYTES (test code = 0.35 K/UL 1068) ABSOLUTE EOSINOPHILS (test code 0.28 K/UL = 1040) ABSOLUTE BASOPHILS (test code = 0.04 K/UL 1069) ABS IMMATURE GRANULOCYTES (test 0.01 K/UL code = 1020) ABS NUCLEATED RBCS (test code = 0.00 K/UL 01458) HEMOGLOBIN [id number] 00:00:00 Test Item Value Reference Range Interpretation Comments HEMOGLOBIN A1c (test code = 21847) 5.6 % HEMOGLOBIN [id number] 00:00:00 Test Item Value Reference Range Interpretation Comments HEMOGLOBIN A1c (test code = 24484) 5.6 % HEMOGLOBIN [id number] 00:00:00 Test Item Value Reference Range Interpretation Comments HEMOGLOBIN A1c (test code = 06230) 5.6 % LIPID [id number] 00:00:00 Test Item Value Reference Range Interpretation Comments CHOLESTEROL (test code = 2210) 193 MG/DL TRIGLYCERIDES (test code = 2232) 134 MG/DL HDL CHOLESTEROL (test code = 2220) 45 MG/DL CALC LDL CHOL (test code = 2237) 123 MG/DL RISK RATIO LDL/HDL (test code = 2.73 RATIO 2238) LIPID [id number] 00:00:00 Test Item Value Reference Range Interpretation Comments CHOLESTEROL (test code = 2210) 193 MG/DL TRIGLYCERIDES (test code = 2232) 134 MG/DL HDL CHOLESTEROL (test code = 2220) 45 MG/DL CALC LDL CHOL (test code = 2237) 123 MG/DL RISK RATIO LDL/HDL (test code = 2.73 RATIO 2238) COMPREHENSIVE METABOLIC [id number] 00:00:00 Test Item Value Reference Range Interpretation Comments GLUCOSE (test code = 2217) 96 MG/DL BUN (test code = 2208) 15 MG/DL CREATININE (test code = 2214) 0.84 MG/DL eGFR (2020 CKD-EPI) (test code 89 ML/MIN/1.73 = 23649) CALC BUN/CREAT (test code = 18 RATIO 2235) SODIUM (test code = 2231) 142 MEQ/L POTASSIUM (test code = 2228) 4.5 MEQ/L CHLORIDE (test code = 2215) 106 MEQ/L CARBON DIOXIDE (test code = 24 MEQ/L 2206) CALCIUM (test code = 2209) 9.2 MG/DL PROTEIN, TOTAL (test code = 7.5 G/DL 222) ALBUMIN (test code = 2201) 4.5 G/DL CALC GLOBULIN (test code = 3.0 G/DL 2240) CALC A/G RATIO (test code = 1.5 RATIO 2234) BILIRUBIN, TOTAL (test code = 0.6 MG/DL 220) ALKALINE PHOSPHATASE (test 68 U/L code = 2204) AST (test code = 2218) 23 U/L ALT (test code = 2219) 24 U/L COMPREHENSIVE METABOLIC [id number] 00:00:00 Test Item Value Reference Range Interpretation Comments GLUCOSE (test code = 2217) 96 MG/DL BUN (test code = 2208) 15 MG/DL CREATININE (test code = 2214) 0.84 MG/DL eGFR (2020 CKD-EPI) (test code 89 ML/MIN/1.73 = 05860) CALC BUN/CREAT (test code = 18 RATIO 2235) SODIUM (test code = 2231) 142 MEQ/L POTASSIUM (test code = 2228) 4.5 MEQ/L CHLORIDE (test code = 2215) 106 MEQ/L CARBON DIOXIDE (test code = 24 MEQ/L 2205) CALCIUM (test code = 2209) 9.2 MG/DL PROTEIN, TOTAL (test code = 7.5 G/DL 2229) ALBUMIN (test code = 2201) 4.5 G/DL CALC GLOBULIN (test code = 3.0 G/DL 2240) CALC A/G RATIO (test code = 1.5 RATIO 2234) BILIRUBIN, TOTAL (test code = 0.6 MG/DL 7) ALKALINE PHOSPHATASE (test 68 U/L code = 2204) AST (test code = 2218) 23 U/L ALT (test code = 2219) 24 U/L HIV AB/AG COMBO RFLX [id number] 00:00:00 Test Item Value Reference Range Interpretation Comments HIV 1/2 4TH GEN, RFLX CONF (test NON-REACTIVE code = 3514) HIV AB/AG COMBO RFLX [id number] 00:00:00 Test Item Value Reference Range Interpretation Comments HIV 1/2 4TH GEN, RFLX CONF (test NON-REACTIVE code = 3514) ACUTE HEPATITIS [id number] 00:00:00 Test Item Value Reference Range Interpretation Comments HEPATITIS A IgM (test code = NON-REACTIVE 31500) HEPATITIS B CORE IgM (test code NON-REACTIVE = 4644) HEPATITIS B SURF AG (test code = NON-REACTIVE 2739) HEPATITIS C ANTIBODY (test code NON-REACTIVE = 4675) INTERPRETATION HEPATITIS A: (NOTE) (test code = 2552) INTERPRETATION HEPATITIS B: (NOTE) (test code = 04189) INTERPRETATION HEPATITIS C: (NOTE) (test code = 94141) ACUTE HEPATITIS [id number] 00:00:00 Test Item Value Reference Range Interpretation Comments HEPATITIS A IgM (test code = NON-REACTIVE 36047) HEPATITIS B CORE IgM (test code NON-REACTIVE = 4644) HEPATITIS B SURF AG (test code = NON-REACTIVE 2739) HEPATITIS C ANTIBODY (test code NON-REACTIVE = 4675) INTERPRETATION HEPATITIS A: (NOTE) (test code = 2552) INTERPRETATION HEPATITIS B: (NOTE) (test code = 42183) INTERPRETATION HEPATITIS C: (NOTE) (test code = 71778) [id number] 00:00:00 Test Item Value Reference Range Interpretation Comments RPR RESULT (test code = NON-REACTIVE 3501) RPR TITER (test code = 3500) NOT INDIC. TITER [id number] 00:00:00 Test Item Value Reference Range Interpretation Comments RPR RESULT (test code = NON-REACTIVE 3501) RPR TITER (test code = 3500) NOT INDIC. TITER [id number] 00:00:00 Test Item Value Reference Range Interpretation Comments RPR RESULT (test code = NON-REACTIVE 3501) RPR TITER (test code = 3500) NOT INDIC. TITER CBC W/AUTO [id number] 00:00:00 Test Item Value Reference Range Interpretation Comments WBC (test code = 1001) 5.6 K/UL RBC (test code = 1002) 4.64 M/UL HEMOGLOBIN (test code = 1003) 13.6 G/DL HEMATOCRIT (test code = 1004) 39.5 % MCV (test code = 1005) 85.1 fL MCH (test code = 1006) 29.3 PG MCHC (test code = 1007) 34.4 G/DL RDW (test code = 1038) 12.7 % NEUTROPHILS (test code = 1008) 46.6 % LYMPHOCYTES (test code = 1010) 41.2 % MONOCYTES (test code = 1011) 6.3 % EOSINOPHILS (test code = 1012) 5.0 % BASOPHILS (test code = 1013) 0.7 % IMMATURE GRANULOCYTES (test 0.2 % code = 1036) NUCLEATED RBCS (test code = 0.0 /100WBC'S 1065) PLATELET COUNT (test code = 225 K/UL 1015) ABSOLUTE NEUTROPHILS (test code 2.59 K/UL = 1066) ABSOLUTE LYMPHOCYTES (test code 2.29 K/UL = 1067) ABSOLUTE MONOCYTES (test code = 0.35 K/UL 1068) ABSOLUTE EOSINOPHILS (test code 0.28 K/UL = 1040) ABSOLUTE BASOPHILS (test code = 0.04 K/UL 1069) ABS IMMATURE GRANULOCYTES (test 0.01 K/UL code = 1020) ABS NUCLEATED RBCS (test code = 0.00 K/UL 35641) CBC W/AUTO [id number] 00:00:00 Test Item Value Reference Range Interpretation Comments WBC (test code = 1001) 5.6 K/UL RBC (test code = 1002) 4.64 M/UL HEMOGLOBIN (test code = 1003) 13.6 G/DL HEMATOCRIT (test code = 1004) 39.5 % MCV (test code = 1005) 85.1 fL MCH (test code = 1006) 29.3 PG MCHC (test code = 1007) 34.4 G/DL RDW (test code = 1038) 12.7 % NEUTROPHILS (test code = 1008) 46.6 % LYMPHOCYTES (test code = 1010) 41.2 % MONOCYTES (test code = 1011) 6.3 % EOSINOPHILS (test code = 1012) 5.0 % BASOPHILS (test code = 1013) 0.7 % IMMATURE GRANULOCYTES (test 0.2 % code = 1036) NUCLEATED RBCS (test code = 0.0 /100WBC'S 1065) PLATELET COUNT (test code = 225 K/UL 1015) ABSOLUTE NEUTROPHILS (test code 2.59 K/UL = 1066) ABSOLUTE LYMPHOCYTES (test code 2.29 K/UL = 1067) ABSOLUTE MONOCYTES (test code = 0.35 K/UL 1068) ABSOLUTE EOSINOPHILS (test code 0.28 K/UL = 1040) ABSOLUTE BASOPHILS (test code = 0.04 K/UL 1069) ABS IMMATURE GRANULOCYTES (test 0.01 K/UL code = 1020) ABS NUCLEATED RBCS (test code = 0.00 K/UL 80358) CBC W/AUTO [id number] 00:00:00 Test Item Value Reference Range Interpretation Comments WBC (test code = 1001) 5.6 K/UL RBC (test code = 1002) 4.64 M/UL HEMOGLOBIN (test code = 1003) 13.6 G/DL HEMATOCRIT (test code = 1004) 39.5 % MCV (test code = 1005) 85.1 fL MCH (test code = 1006) 29.3 PG MCHC (test code = 1007) 34.4 G/DL RDW (test code = 1038) 12.7 % NEUTROPHILS (test code = 1008) 46.6 % LYMPHOCYTES (test code = 1010) 41.2 % MONOCYTES (test code = 1011) 6.3 % EOSINOPHILS (test code = 1012) 5.0 % BASOPHILS (test code = 1013) 0.7 % IMMATURE GRANULOCYTES (test 0.2 % code = 1036) NUCLEATED RBCS (test code = 0.0 /100WBC'S 1065) PLATELET COUNT (test code = 225 K/UL 1015) ABSOLUTE NEUTROPHILS (test code 2.59 K/UL = 1066) ABSOLUTE LYMPHOCYTES (test code 2.29 K/UL = 1067) ABSOLUTE MONOCYTES (test code = 0.35 K/UL 1068) ABSOLUTE EOSINOPHILS (test code 0.28 K/UL = 1040) ABSOLUTE BASOPHILS (test code = 0.04 K/UL 1069) ABS IMMATURE GRANULOCYTES (test 0.01 K/UL code = 1020) ABS NUCLEATED RBCS (test code = 0.00 K/UL 85817) HEMOGLOBIN [id number] 00:00:00 Test Item Value Reference Range Interpretation Comments HEMOGLOBIN A1c (test code = 76323) 5.6 % HEMOGLOBIN [id number] 00:00:00 Test Item Value Reference Range Interpretation Comments HEMOGLOBIN A1c (test code = 76892) 5.6 % HEMOGLOBIN [id number] 00:00:00 Test Item Value Reference Range Interpretation Comments HEMOGLOBIN A1c (test code = 22200) 5.6 % LIPID [id number] 00:00:00 Test Item Value Reference Range Interpretation Comments CHOLESTEROL (test code = 2210) 193 MG/DL TRIGLYCERIDES (test code = 2232) 134 MG/DL HDL CHOLESTEROL (test code = 2220) 45 MG/DL CALC LDL CHOL (test code = 2237) 123 MG/DL RISK RATIO LDL/HDL (test code = 2.73 RATIO 2238) LIPID [id number] 00:00:00 Test Item Value Reference Range Interpretation Comments CHOLESTEROL (test code = 2210) 193 MG/DL TRIGLYCERIDES (test code = 2232) 134 MG/DL HDL CHOLESTEROL (test code = 2220) 45 MG/DL CALC LDL CHOL (test code = 2237) 123 MG/DL RISK RATIO LDL/HDL (test code = 2.73 RATIO 2238) COMPREHENSIVE METABOLIC [id number] 00:00:00 Test Item Value Reference Range Interpretation Comments GLUCOSE (test code = 2217) 96 MG/DL BUN (test code = 2208) 15 MG/DL CREATININE (test code = 2214) 0.84 MG/DL eGFR (2020 CKD-EPI) (test code 89 ML/MIN/1.73 = 03364) CALC BUN/CREAT (test code = 18 RATIO 2235) SODIUM (test code = 2231) 142 MEQ/L POTASSIUM (test code = 2228) 4.5 MEQ/L CHLORIDE (test code = 2215) 106 MEQ/L CARBON DIOXIDE (test code = 24 MEQ/L 2205) CALCIUM (test code = 2209) 9.2 MG/DL PROTEIN, TOTAL (test code = 7.5 G/DL 2228) ALBUMIN (test code = 2201) 4.5 G/DL CALC GLOBULIN (test code = 3.0 G/DL 2240) CALC A/G RATIO (test code = 1.5 RATIO 2234) BILIRUBIN, TOTAL (test code = 0.6 MG/DL 2206) ALKALINE PHOSPHATASE (test 68 U/L code = 2204) AST (test code = 2218) 23 U/L ALT (test code = 2219) 24 U/L COMPREHENSIVE METABOLIC [id number] 00:00:00 Test Item Value Reference Range Interpretation Comments GLUCOSE (test code = 2217) 96 MG/DL BUN (test code = 2208) 15 MG/DL CREATININE (test code = 2214) 0.84 MG/DL eGFR (2020 CKD-EPI) (test code 89 ML/MIN/1.73 = 39380) CALC BUN/CREAT (test code = 18 RATIO 2235) SODIUM (test code = 2231) 142 MEQ/L POTASSIUM (test code = 2228) 4.5 MEQ/L CHLORIDE (test code = 2215) 106 MEQ/L CARBON DIOXIDE (test code = 24 MEQ/L 2205) CALCIUM (test code = 2209) 9.2 MG/DL PROTEIN, TOTAL (test code = 7.5 G/DL 2228) ALBUMIN (test code = 2201) 4.5 G/DL CALC GLOBULIN (test code = 3.0 G/DL 2239) CALC A/G RATIO (test code = 1.5 RATIO 2233) BILIRUBIN, TOTAL (test code = 0.6 MG/DL 2206) ALKALINE PHOSPHATASE (test 68 U/L code = 2204) AST (test code = 2218) 23 U/L ALT (test code = 2219) 24 U/L HIV AB/AG COMBO RFLX [id number] 00:00:00 Test Item Value Reference Range Interpretation Comments HIV 1/2 4TH GEN, RFLX CONF (test NON-REACTIVE code = 3514) HIV AB/AG COMBO RFLX [id number] 00:00:00 Test Item Value Reference Range Interpretation Comments HIV 1/2 4TH GEN, RFLX CONF (test NON-REACTIVE code = 3514) ACUTE HEPATITIS [id number] 00:00:00 Test Item Value Reference Range Interpretation Comments HEPATITIS A IgM (test code = NON-REACTIVE 01294) HEPATITIS B CORE IgM (test code NON-REACTIVE = 4644) HEPATITIS B SURF AG (test code = NON-REACTIVE 2739) HEPATITIS C ANTIBODY (test code NON-REACTIVE = 4675) INTERPRETATION HEPATITIS A: (NOTE) (test code = 2552) INTERPRETATION HEPATITIS B: (NOTE) (test code = 98833) INTERPRETATION HEPATITIS C: (NOTE) (test code = 09716) ACUTE HEPATITIS [id number] 00:00:00 Test Item Value Reference Range Interpretation Comments HEPATITIS A IgM (test code = NON-REACTIVE 02459) HEPATITIS B CORE IgM (test code NON-REACTIVE = 4644) HEPATITIS B SURF AG (test code = NON-REACTIVE 2739) HEPATITIS C ANTIBODY (test code NON-REACTIVE = 4675) INTERPRETATION HEPATITIS A: (NOTE) (test code = 2552) INTERPRETATION HEPATITIS B: (NOTE) (test code = 10375) INTERPRETATION HEPATITIS C: (NOTE) (test code = 71215) [id number] 00:00:00 Test Item Value Reference Range Interpretation Comments RPR RESULT (test code = NON-REACTIVE 3501) RPR TITER (test code = 3500) NOT INDIC. TITER [id number] 00:00:00 Test Item Value Reference Range Interpretation Comments RPR RESULT (test code = NON-REACTIVE 3501) RPR TITER (test code = 3500) NOT INDIC. TITER [id number] 00:00:00 Test Item Value Reference Range Interpretation Comments RPR RESULT (test code = NON-REACTIVE 3501) RPR TITER (test code = 3500) NOT INDIC. TITER PAP TEST, THINPREP, [id number] 00:00:00 Test Item Value Reference Range Interpretation Comments SOURCE: (test code = 8001) Cervical/Endocervi leigh SLIDES: (test code = 8011) 2 LMP: (test code = 8021) 06/19/2020 SPECIMEN ADEQUACY: (test (NOTE) code = 64565) INTERPRETATION: (test code ASCUS/EPITH. = 10040) ABNORMALITY; SEE BELOW OTHER COMMENTS: (test code (NOTE) = 8081) RADIO ELECTRICIAN: (test Marycarmen code = 8101) SYED Callejas(ASCP )[facility] PATHOLOGIST INTERPRETATION Walter Christiansen BY: (test code = 8122) D. LOCATION: (test code = (NOTE) 65554) CPT: (test code = 8140) (NOTE) PAP TEST, THINPREP, [id number] 00:00:00 Test Item Value Reference Range Interpretation Comments SOURCE: (test code = 8001) Cervical/Endocervi leigh SLIDES: (test code = 8011) 2 LMP: (test code = 8021) 06/19/2020 SPECIMEN ADEQUACY: (test (NOTE) code = 44408) INTERPRETATION: (test code ASCUS/EPITH. = 27702) ABNORMALITY; SEE BELOW OTHER COMMENTS: (test code (NOTE) = 8081) RADIO ELECTRICIAN: (test Marycarmen code = 8101) SYED Callejas(ASCP )[facility] PATHOLOGIST INTERPRETATION Walter Christiansen BY: (test code = 8122) D. LOCATION: (test code = (NOTE) 31755) CPT: (test code = 8140) (NOTE) PAP TEST, THINPREP, [id number] 00:00:00 Test Item Value Reference Range Interpretation Comments SOURCE: (test code = 8001) Cervical/Endocervi leigh SLIDES: (test code = 8011) 2 LMP: (test code = 8021) 06/19/2020 SPECIMEN ADEQUACY: (test (NOTE) code = 75754) INTERPRETATION: (test code ASCUS/EPITH. = 27319) ABNORMALITY; SEE BELOW OTHER COMMENTS: (test code (NOTE) = 8081) RADIO ELECTRICIAN: (test Marycarmen code = 8101) SYED Callejas(ASCP )[facility] PATHOLOGIST INTERPRETATION Walter Christiansen BY: (test code = 8122) D. LOCATION: (test code = (NOTE) 98707) CPT: (test code = 8140) (NOTE) PAP TEST, THINPREP, [id number] 00:00:00 Test Item Value Reference Range Interpretation Comments SOURCE: (test code = 8001) Cervical/Endocervi leigh SLIDES: (test code = 8011) 2 LMP: (test code = 8021) 06/19/2020 SPECIMEN ADEQUACY: (test (NOTE) code = 04881) INTERPRETATION: (test code ASCUS/EPITH. = 92689) ABNORMALITY; SEE BELOW OTHER COMMENTS: (test code (NOTE) = 8081) RADIO ELECTRICIAN: (test Marycarmen code = 8101) SYED Callejas(ASCP )[facility] PATHOLOGIST INTERPRETATION Walter Christiansen BY: (test code = 8122) D. LOCATION: (test code = (NOTE) 53450) CPT: (test code = 8140) (NOTE) GC AND CHLAMYDIA, AMPLIFIED, [id number] 00:00:00 Test Item Value Reference Range Interpretation Comments GONORRHEA, NAAT (test code = 51482) NEGATIVE CHLAMYDIA, NAAT (test code = 74305) NEGATIVE GC AND CHLAMYDIA, AMPLIFIED, [id number] 00:00:00 Test Item Value Reference Range Interpretation Comments GONORRHEA, NAAT (test code = 65466) NEGATIVE CHLAMYDIA, NAAT (test code = 43263) NEGATIVE GC AND CHLAMYDIA, AMPLIFIED, [id number] 00:00:00 Test Item Value Reference Range Interpretation Comments GONORRHEA, NAAT (test code = 90672) NEGATIVE CHLAMYDIA, NAAT (test code = 88475) NEGATIVE GC AND CHLAMYDIA, AMPLIFIED, [id number] 00:00:00 Test Item Value Reference Range Interpretation Comments GONORRHEA, NAAT (test code = 98102) NEGATIVE CHLAMYDIA, NAAT (test code = 41111) NEGATIVE HIV AB/AG COMBO RFLX [id number] 00:00:00 Test Item Value Reference Range Interpretation Comments HIV 1/2 4TH GEN, RFLX CONF (test NON-REACTIVE code = 3514) HIV AB/AG COMBO RFLX [id number] 00:00:00 Test Item Value Reference Range Interpretation Comments HIV 1/2 4TH GEN, RFLX CONF (test NON-REACTIVE code = 3514) HPV HIGH RISK WITH GENOTYPE, [id number] 00:00:00 Test Item Value Reference Range Interpretation Comments HPV HIGH RISK INTERP (test code = NEGATIVE 38942) HPV 16 (test code = 87749) NEGATIVE HPV 18 (test code = 19281) NEGATIVE HPV, HR, OTHER GENOTYPES (test code NEGATIVE = 84554) HPV HIGH RISK WITH GENOTYPE, [id number] 00:00:00 Test Item Value Reference Range Interpretation Comments HPV HIGH RISK INTERP (test code = NEGATIVE 81354) HPV 16 (test code = 21788) NEGATIVE HPV 18 (test code = 47436) NEGATIVE HPV, HR, OTHER GENOTYPES (test code NEGATIVE = 44882) HEPATITIS PROFILE (A,B,C)2020-06-22 00:00:00 Test Item Value Reference Range Interpretation Comments HEPATITIS A TOTAL AB (test code REACTIVE = 5) HEPATITIS B SURF AG (test code = NON-REACTIVE 9) HEP B CORE TOTAL AB (test code = NON-REACTIVE 2728) HEPATITIS B SURFACE AB (test NON-REACTIVE code = 2737) HEPATITIS C ANTIBODY (test code NON-REACTIVE = 4675) INTERPRETATION HEPATITIS A: (NOTE) (test code = 2552) INTERPRETATION HEPATITIS B: (NOTE) (test code = 71620) INTERPRETATION HEPATITIS C: (NOTE) (test code = 28632) HEPATITIS PROFILE (A,B,C)2020-06-22 00:00:00 Test Item Value Reference Range Interpretation Comments HEPATITIS A TOTAL AB (test code REACTIVE = 2725) HEPATITIS B SURF AG (test code = NON-REACTIVE 9) HEP B CORE TOTAL AB (test code = NON-REACTIVE 9) HEPATITIS B SURFACE AB (test NON-REACTIVE code = 2737) HEPATITIS C ANTIBODY (test code NON-REACTIVE = 4675) INTERPRETATION HEPATITIS A: (NOTE) (test code = 2552) INTERPRETATION HEPATITIS B: (NOTE) (test code = 84511) INTERPRETATION HEPATITIS C: (NOTE) (test code = 48831) VAGINAL PATHOGENS DNA [id number] 00:00:00 Test Item Value Reference Range Interpretation Comments IVONE SPECIES (test code = ) NEGATIVE G. VAGINALIS (test code = ) POSITIVE T. VAGINALIS (test code = ) NEGATIVE VAGINAL PATHOGENS DNA [id number] 00:00:00 Test Item Value Reference Range Interpretation Comments IVONE SPECIES (test code = ) NEGATIVE G. VAGINALIS (test code = ) POSITIVE T. VAGINALIS (test code = ) NEGATIVE HEPATITIS A IgM [REFLEX]2020-06-22 00:00:00 Test Item Value Reference Range Interpretation Comments HEPATITIS A IgM (test code = NON-REACTIVE 2727) VITAMIN D, 25 [id number] 00:00:00 Test Item Value Reference Range Interpretation Comments VITAMIN D, 25 OH (test code = 4958) 28 NG/ML VITAMIN D, 25 [id number] 00:00:00 Test Item Value Reference Range Interpretation Comments VITAMIN D, 25 OH (test code = 4958) 28 NG/ML HIV AB/AG COMBO RFLX [id number] 00:00:00 Test Item Value Reference Range Interpretation Comments HIV 1/2 4TH GEN, RFLX CONF (test NON-REACTIVE code = 3514) HIV AB/AG COMBO RFLX [id number] 00:00:00 Test Item Value Reference Range Interpretation Comments HIV 1/2 4TH GEN, RFLX CONF (test NON-REACTIVE code = 3514) HPV HIGH RISK WITH GENOTYPE, [id number] 00:00:00 Test Item Value Reference Range Interpretation Comments HPV HIGH RISK INTERP (test code = NEGATIVE 45086) HPV 16 (test code = 31211) NEGATIVE HPV 18 (test code = 64099) NEGATIVE HPV, HR, OTHER GENOTYPES (test code NEGATIVE = 06303) HPV HIGH RISK WITH GENOTYPE, [id number] 00:00:00 Test Item Value Reference Range Interpretation Comments HPV HIGH RISK INTERP (test code = NEGATIVE 51423) HPV 16 (test code = 20150) NEGATIVE HPV 18 (test code = 89765) NEGATIVE HPV, HR, OTHER GENOTYPES (test code NEGATIVE = 63541) HEPATITIS PROFILE (A,B,C)2020-06-22 00:00:00 Test Item Value Reference Range Interpretation Comments HEPATITIS A TOTAL AB (test code REACTIVE = 2725) HEPATITIS B SURF AG (test code = NON-REACTIVE 2739) HEP B CORE TOTAL AB (test code = NON-REACTIVE 2729) HEPATITIS B SURFACE AB (test NON-REACTIVE code = 2737) HEPATITIS C ANTIBODY (test code NON-REACTIVE = 4675) INTERPRETATION HEPATITIS A: (NOTE) (test code = 2552) INTERPRETATION HEPATITIS B: (NOTE) (test code = 39357) INTERPRETATION HEPATITIS C: (NOTE) (test code = 78163) HEPATITIS PROFILE (A,B,C)2020-06-22 00:00:00 Test Item Value Reference Range Interpretation Comments HEPATITIS A TOTAL AB (test code REACTIVE = 2725) HEPATITIS B SURF AG (test code = NON-REACTIVE 2739) HEP B CORE TOTAL AB (test code = NON-REACTIVE 2729) HEPATITIS B SURFACE AB (test NON-REACTIVE code = 2737) HEPATITIS C ANTIBODY (test code NON-REACTIVE = 4675) INTERPRETATION HEPATITIS A: (NOTE) (test code = 2552) INTERPRETATION HEPATITIS B: (NOTE) (test code = 86929) INTERPRETATION HEPATITIS C: (NOTE) (test code = 99637) VAGINAL PATHOGENS DNA [id number] 00:00:00 Test Item Value Reference Range Interpretation Comments IVONE SPECIES (test code = ) NEGATIVE G. VAGINALIS (test code = 54972) POSITIVE T. VAGINALIS (test code = 97676) NEGATIVE VAGINAL PATHOGENS DNA [id number] 00:00:00 Test Item Value Reference Range Interpretation Comments IVONE SPECIES (test code = ) NEGATIVE G. VAGINALIS (test code = 87922) POSITIVE T. VAGINALIS (test code = 67971) NEGATIVE HEPATITIS A IgM [REFLEX]2020-06-22 00:00:00 Test Item Value Reference Range Interpretation Comments HEPATITIS A IgM (test code = NON-REACTIVE 8) VITAMIN D, 25 [id number] 00:00:00 Test Item Value Reference Range Interpretation Comments VITAMIN D, 25 OH (test code = 4958) 28 NG/ML VITAMIN D, 25 [id number] 00:00:00 Test Item Value Reference Range Interpretation Comments VITAMIN D, 25 OH (test code = 4958) 28 NG/ML [id number] 00:00:00 Test Item Value Reference Range Interpretation Comments TSH, THIRD GENERATION (test code 1.480 UIU/ML = 2821) [id number] 00:00:00 Test Item Value Reference Range Interpretation Comments TSH, THIRD GENERATION (test code 1.480 UIU/ML = 2821) [id number] 00:00:00 Test Item Value Reference Range Interpretation Comments TSH, THIRD GENERATION (test code 1.480 UIU/ML = 2821) [id number] 00:00:00 Test Item Value Reference Range Interpretation Comments TSH, THIRD GENERATION (test code 1.480 UIU/ML = 2821) [id number] 00:00:00 Test Item Value Reference Range Interpretation Comments TSH, THIRD GENERATION (test code 1.480 UIU/ML = 2821) [id number] 00:00:00 Test Item Value Reference Range Interpretation Comments TSH, THIRD GENERATION (test code 1.480 UIU/ML = 2821) CBC W/AUTO [id number] 00:00:00 Test Item Value Reference Range Interpretation Comments WBC (test code = 1001) 8.8 K/UL RBC (test code = 1002) 4.72 M/UL HEMOGLOBIN (test code = 1003) 14.1 G/DL HEMATOCRIT (test code = 1004) 40.6 % MCV (test code = 1005) 86.0 fL MCH (test code = 1006) 29.9 PG MCHC (test code = 1007) 34.7 G/DL RDW (test code = 1038) 12.3 % NEUTROPHILS (test code = 1008) 61.4 % LYMPHOCYTES (test code = 1010) 29.1 % MONOCYTES (test code = 1011) 6.8 % EOSINOPHILS (test code = 1012) 2.0 % BASOPHILS (test code = 1013) 0.7 % PLATELET COUNT (test code = 1015) 237 K/UL CBC W/AUTO [id number] 00:00:00 Test Item Value Reference Range Interpretation Comments WBC (test code = 1001) 8.8 K/UL RBC (test code = 1002) 4.72 M/UL HEMOGLOBIN (test code = 1003) 14.1 G/DL HEMATOCRIT (test code = 1004) 40.6 % MCV (test code = 1005) 86.0 fL MCH (test code = 1006) 29.9 PG MCHC (test code = 1007) 34.7 G/DL RDW (test code = 1038) 12.3 % NEUTROPHILS (test code = 1008) 61.4 % LYMPHOCYTES (test code = 1010) 29.1 % MONOCYTES (test code = 1011) 6.8 % EOSINOPHILS (test code = 1012) 2.0 % BASOPHILS (test code = 1013) 0.7 % PLATELET COUNT (test code = 1015) 237 K/UL CBC W/AUTO [id number] 00:00:00 Test Item Value Reference Range Interpretation Comments WBC (test code = 1001) 8.8 K/UL RBC (test code = 1002) 4.72 M/UL HEMOGLOBIN (test code = 1003) 14.1 G/DL HEMATOCRIT (test code = 1004) 40.6 % MCV (test code = 1005) 86.0 fL MCH (test code = 1006) 29.9 PG MCHC (test code = 1007) 34.7 G/DL RDW (test code = 1038) 12.3 % NEUTROPHILS (test code = 1008) 61.4 % LYMPHOCYTES (test code = 1010) 29.1 % MONOCYTES (test code = 1011) 6.8 % EOSINOPHILS (test code = 1012) 2.0 % BASOPHILS (test code = 1013) 0.7 % PLATELET COUNT (test code = 1015) 237 K/UL COMPREHENSIVE METABOLIC [id number] 00:00:00 Test Item Value Reference Range Interpretation Comments GLUCOSE (test code = 2217) 82 MG/DL BUN (test code = 2208) 16 MG/DL CREATININE (test code = 2214) 0.84 MG/DL eGFR AMER. (test code 100 ML/MIN/1.73 = 46021) eGFR NON- AMER. (test 86 ML/MIN/1.73 code = 77481) CALC BUN/CREAT (test code = 19 RATIO 2235) SODIUM (test code = 2231) 142 MEQ/L POTASSIUM (test code = 2228) 3.9 MEQ/L CHLORIDE (test code = 2215) 103 MEQ/L CARBON DIOXIDE (test code = 24 MEQ/L 2206) CALCIUM (test code = 2209) 9.7 MG/DL PROTEIN, TOTAL (test code = 7.6 G/DL 2228) ALBUMIN (test code = 2201) 4.5 G/DL CALC GLOBULIN (test code = 3.1 G/DL 2240) CALC A/G RATIO (test code = 1.5 RATIO 2234) BILIRUBIN, TOTAL (test code = 0.7 MG/DL 2206) ALKALINE PHOSPHATASE (test 60 U/L code = 2203) AST (test code = 2218) 25 U/L ALT (test code = 2219) 26 U/L COMPREHENSIVE METABOLIC [id number] 00:00:00 Test Item Value Reference Range Interpretation Comments GLUCOSE (test code = 2217) 82 MG/DL BUN (test code = 2208) 16 MG/DL CREATININE (test code = 2214) 0.84 MG/DL eGFR AMER. (test code 100 ML/MIN/1.73 = 90397) eGFR NON- AMER. (test 86 ML/MIN/1.73 code = 12781) CALC BUN/CREAT (test code = 19 RATIO 2235) SODIUM (test code = 2231) 142 MEQ/L POTASSIUM (test code = 2228) 3.9 MEQ/L CHLORIDE (test code = 2215) 103 MEQ/L CARBON DIOXIDE (test code = 24 MEQ/L 220) CALCIUM (test code = 2209) 9.7 MG/DL PROTEIN, TOTAL (test code = 7.6 G/DL 2228) ALBUMIN (test code = 2201) 4.5 G/DL CALC GLOBULIN (test code = 3.1 G/DL 2240) CALC A/G RATIO (test code = 1.5 RATIO 2234) BILIRUBIN, TOTAL (test code = 0.7 MG/DL 2206) ALKALINE PHOSPHATASE (test 60 U/L code = 2204) AST (test code = 2218) 25 U/L ALT (test code = 2219) 26 U/L LIPID [id number] 00:00:00 Test Item Value Reference Range Interpretation Comments CHOLESTEROL (test code = 2210) 182 MG/DL TRIGLYCERIDES (test code = 2232) 165 MG/DL HDL CHOLESTEROL (test code = 2220) 52 MG/DL CALC LDL CHOL (test code = 2237) 102 MG/DL RISK RATIO LDL/HDL (test code = 1.96 RATIO 2238) LIPID [id number] 00:00:00 Test Item Value Reference Range Interpretation Comments CHOLESTEROL (test code = 2210) 182 MG/DL TRIGLYCERIDES (test code = 2232) 165 MG/DL HDL CHOLESTEROL (test code = 2220) 52 MG/DL CALC LDL CHOL (test code = 2237) 102 MG/DL RISK RATIO LDL/HDL (test code = 1.96 RATIO 2238) HEMOGLOBIN [id number] 00:00:00 Test Item Value Reference Range Interpretation Comments HEMOGLOBIN A1c (test code = 47942) 5.6 % HEMOGLOBIN [id number] 00:00:00 Test Item Value Reference Range Interpretation Comments HEMOGLOBIN A1c (test code = 55073) 5.6 % HEMOGLOBIN [id number] 00:00:00 Test Item Value Reference Range Interpretation Comments HEMOGLOBIN A1c (test code = 39474) 5.6 % CBC W/AUTO [id number] 00:00:00 Test Item Value Reference Range Interpretation Comments WBC (test code = 1001) 8.8 K/UL RBC (test code = 1002) 4.72 M/UL HEMOGLOBIN (test code = 1003) 14.1 G/DL HEMATOCRIT (test code = 1004) 40.6 % MCV (test code = 1005) 86.0 fL MCH (test code = 1006) 29.9 PG MCHC (test code = 1007) 34.7 G/DL RDW (test code = 1038) 12.3 % NEUTROPHILS (test code = 1008) 61.4 % LYMPHOCYTES (test code = 1010) 29.1 % MONOCYTES (test code = 1011) 6.8 % EOSINOPHILS (test code = 1012) 2.0 % BASOPHILS (test code = 1013) 0.7 % PLATELET COUNT (test code = 1015) 237 K/UL CBC W/AUTO [id number] 00:00:00 Test Item Value Reference Range Interpretation Comments WBC (test code = 1001) 8.8 K/UL RBC (test code = 1002) 4.72 M/UL HEMOGLOBIN (test code = 1003) 14.1 G/DL HEMATOCRIT (test code = 1004) 40.6 % MCV (test code = 1005) 86.0 fL MCH (test code = 1006) 29.9 PG MCHC (test code = 1007) 34.7 G/DL RDW (test code = 1038) 12.3 % NEUTROPHILS (test code = 1008) 61.4 % LYMPHOCYTES (test code = 1010) 29.1 % MONOCYTES (test code = 1011) 6.8 % EOSINOPHILS (test code = 1012) 2.0 % BASOPHILS (test code = 1013) 0.7 % PLATELET COUNT (test code = 1015) 237 K/UL CBC W/AUTO [id number] 00:00:00 Test Item Value Reference Range Interpretation Comments WBC (test code = 1001) 8.8 K/UL RBC (test code = 1002) 4.72 M/UL HEMOGLOBIN (test code = 1003) 14.1 G/DL HEMATOCRIT (test code = 1004) 40.6 % MCV (test code = 1005) 86.0 fL MCH (test code = 1006) 29.9 PG MCHC (test code = 1007) 34.7 G/DL RDW (test code = 1038) 12.3 % NEUTROPHILS (test code = 1008) 61.4 % LYMPHOCYTES (test code = 1010) 29.1 % MONOCYTES (test code = 1011) 6.8 % EOSINOPHILS (test code = 1012) 2.0 % BASOPHILS (test code = 1013) 0.7 % PLATELET COUNT (test code = 1015) 237 K/UL COMPREHENSIVE METABOLIC [id number] 00:00:00 Test Item Value Reference Range Interpretation Comments GLUCOSE (test code = 2217) 82 MG/DL BUN (test code = 2208) 16 MG/DL CREATININE (test code = 2214) 0.84 MG/DL eGFR AMER. (test code 100 ML/MIN/1.73 = 31809) eGFR NON- AMER. (test 86 ML/MIN/1.73 code = 82797) CALC BUN/CREAT (test code = 19 RATIO 2235) SODIUM (test code = 2231) 142 MEQ/L POTASSIUM (test code = 2228) 3.9 MEQ/L CHLORIDE (test code = 2215) 103 MEQ/L CARBON DIOXIDE (test code = 24 MEQ/L 2205) CALCIUM (test code = 2209) 9.7 MG/DL PROTEIN, TOTAL (test code = 7.6 G/DL 2228) ALBUMIN (test code = 2201) 4.5 G/DL CALC GLOBULIN (test code = 3.1 G/DL 2240) CALC A/G RATIO (test code = 1.5 RATIO 2234) BILIRUBIN, TOTAL (test code = 0.7 MG/DL 2206) ALKALINE PHOSPHATASE (test 60 U/L code = 2204) AST (test code = 2218) 25 U/L ALT (test code = 2219) 26 U/L COMPREHENSIVE METABOLIC [id number] 00:00:00 Test Item Value Reference Range Interpretation Comments GLUCOSE (test code = 2217) 82 MG/DL BUN (test code = 2208) 16 MG/DL CREATININE (test code = 2214) 0.84 MG/DL eGFR AMER. (test code 100 ML/MIN/1.73 = 42484) eGFR NON- AMER. (test 86 ML/MIN/1.73 code = 89178) CALC BUN/CREAT (test code = 19 RATIO 2235) SODIUM (test code = 2231) 142 MEQ/L POTASSIUM (test code = 2228) 3.9 MEQ/L CHLORIDE (test code = 2215) 103 MEQ/L CARBON DIOXIDE (test code = 24 MEQ/L 2205) CALCIUM (test code = 2209) 9.7 MG/DL PROTEIN, TOTAL (test code = 7.6 G/DL 2228) ALBUMIN (test code = 2201) 4.5 G/DL CALC GLOBULIN (test code = 3.1 G/DL 2240) CALC A/G RATIO (test code = 1.5 RATIO 2234) BILIRUBIN, TOTAL (test code = 0.7 MG/DL 2206) ALKALINE PHOSPHATASE (test 60 U/L code = 2204) AST (test code = 2218) 25 U/L ALT (test code = 2219) 26 U/L LIPID [id number] 00:00:00 Test Item Value Reference Range Interpretation Comments CHOLESTEROL (test code = 2210) 182 MG/DL TRIGLYCERIDES (test code = 2232) 165 MG/DL HDL CHOLESTEROL (test code = 2220) 52 MG/DL CALC LDL CHOL (test code = 2237) 102 MG/DL RISK RATIO LDL/HDL (test code = 1.96 RATIO 2238) LIPID [id number] 00:00:00 Test Item Value Reference Range Interpretation Comments CHOLESTEROL (test code = 2210) 182 MG/DL TRIGLYCERIDES (test code = 2232) 165 MG/DL HDL CHOLESTEROL (test code = 2220) 52 MG/DL CALC LDL CHOL (test code = 2237) 102 MG/DL RISK RATIO LDL/HDL (test code = 1.96 RATIO 2238) HEMOGLOBIN [id number] 00:00:00 Test Item Value Reference Range Interpretation Comments HEMOGLOBIN A1c (test code = 70346) 5.6 % HEMOGLOBIN [id number] 00:00:00 Test Item Value Reference Range Interpretation Comments HEMOGLOBIN A1c (test code = 96316) 5.6 % HEMOGLOBIN [id number] 00:00:00 Test Item Value Reference Range Interpretation Comments HEMOGLOBIN A1c (test code = 44987) 5.6 % CULTURE, [id number] 00:00:00 Test Item Value Reference Range Interpretation Comments CULTURE, URINE (test SPECIMEN NUMBER: code = 94898) [id number] CULTURE, [id number] 00:00:00 Test Item Value Reference Range Interpretation Comments CULTURE, URINE (test SPECIMEN NUMBER: code = 84345) [id number] CULTURE, [id number] 00:00:00 Test Item Value Reference Range Interpretation Comments CULTURE, URINE (test SPECIMEN NUMBER: code = 33782) [id number] CULTURE, [id number] 00:00:00 Test Item Value Reference Range Interpretation Comments CULTURE, URINE (test SPECIMEN NUMBER: code = 39311) [id number] CULTURE, [id number] 00:00:00 Test Item Value Reference Range Interpretation Comments CULTURE, URINE (test SPECIMEN NUMBER: code = 16864) [id number] CULTURE, [id number] 00:00:00 Test Item Value Reference Range Interpretation Comments CULTURE, URINE (test SPECIMEN NUMBER: code = 64928) [id number] CULTURE, [id number] 00:00:00 Test Item Value Reference Range Interpretation Comments CULTURE, URINE (test SPECIMEN NUMBER: code = 58485) [id number] CULTURE, [id number] 00:00:00 Test Item Value Reference Range Interpretation Comments CULTURE, URINE (test SPECIMEN NUMBER: code = 53063) [id number] CULTURE, [id number] 00:00:00 Test Item Value Reference Range Interpretation Comments CULTURE, URINE (test SPECIMEN NUMBER: code = 06377) [id number] CULTURE, [id number] 00:00:00 Test Item Value Reference Range Interpretation Comments CULTURE, URINE (test SPECIMEN NUMBER: code = 37940) [id number] CULTURE, [id number] 00:00:00 Test Item Value Reference Range Interpretation Comments CULTURE, URINE (test SPECIMEN NUMBER: code = 01119) [id number] CULTURE, [id number] 00:00:00 Test Item Value Reference Range Interpretation Comments CULTURE, URINE (test SPECIMEN NUMBER: code = 76523) [id number]
[2022-07-23] MEDS ORDERED: ONDANSETRON 4 MG/2 ML VIAL ONE (04:12)
[2022-07-23] MEDS ORDERED: NA CHLORIDE 0.9% 1,000 ML ONE (04:12)
[2022-07-23] MEDS ORDERED: MORPHINE 4 MG/ML SYR ONE (04:12)
[2022-07-23] MEDS ORDERED: FAMOTIDINE 20 MG/2 ML VIAL IV ONE (04:12)
[2022-07-23 04:23] LABS: Absolute Lymphocytes (CBC) 2.5 K/uL (0.7-4.9); Hematocrit 40.6 % (36.0-45.0); Lymphocytes % 26.5 % (15.3-44.8); MCV 84.5 fL (80-100)
[2022-07-23 04:37] LABS: Albumin 3.8 g/dL (3.4-5.0); Bilirubin Total 0.6 mg/dL (0.2-1.0); Potassium 3.9 mmol/L (3.5-5.1); Protein, Total 7.8 g/dL (6.4-8.2)
[2022-07-23] MEDS ORDERED: KETOROLAC 30 MG/ML INJ ONE (05:52)
[2022-07-23 06:06] LABS: Urine Blood Trace-lysed (Negative); Urine Glucose Negative (Negative); Urine Protein Negative (Negative)
[2022-07-23 06:19] LABS: Urine Bacteria 20-50 /HPF (<20); Urine Mucus 1+ /HPF (None Seen); Urine RBC <5 /HPF (None Seen)
--- NOTE | 2022-07-23 06:49 | EDPHYS ---
Physician Documentation [facility] Name: Sakina Mancia Age: 42 yrs Sex: Female : 1980 Arrival Date: 07/23/2022 Time: 03:55 Bed 15 Private MD: ED Physician Tyrel Prince HPI: 07/23 04:59 This 42 yrs old Female presents to ER via EMS with complaints of abdominal ms3 pain. 04:59 42-year-old female with no past medical history presents for left lower quadrant ms3 abdominal pain that began 45 minutes prior to arrival. Patient states pain is a 10/10. Patient denies nausea, vomiting, diarrhea, fevers. Patient endorses chills. Patient denies alleviating or inciting factors.. Historical: - Allergies: 04:05 No Known Allergies; ke1 - PMHx: 04:05 None; ke1 - Immunization history:: Client reports receiving the 2nd dose of the Covid vaccine. - Social history:: Smoking status: Patient denies any tobacco usage or history of. ROS: 04:59 Constitutional: Negative for fever, and chills. Neck: Negative for injury, pain, and ms3 swelling, Cardiovascular: Negative for chest pain, and palpitations. Respiratory: Negative for shortness of breath, cough, wheezing, and pleuritic chest pain. 04:59 Back: Negative for injury and pain, MS/Extremity: Negative for injury and deformity, Skin: Negative for injury, rash, and discoloration. 04:59 Abdomen/GI: Positive for abdominal pain. 04:59 All other systems are negative. Exam: 04:59 Constitutional: This is a well developed, well nourished patient who is awake, alert, ms3 and in no acute distress. Head/Face: Normocephalic, atraumatic. Neck: Trachea midline, no cervical lymphadenopathy. Supple, full range of motion without nuchal rigidity, or vertebral point tenderness. No Meningismus. Chest/axilla: Normal chest wall appearance and motion. Nontender with no deformity. Cardiovascular: Regular rate and rhythm with a normal S1 and S2. No gallops, murmurs, or rubs. Normal PMI, no JVD. No pulse deficits. Respiratory: Lungs have equal breath sounds bilaterally, clear to auscultation and percussion. No rales, rhonchi or wheezes noted. No increased work of breathing, no retractions or nasal flaring. 04:59 MS/ Extremity: Pulses equal, no cyanosis. Neurovascular intact. Full, normal range of motion. 04:59 Abdomen/GI: Inspection: abdomen appears normal, Bowel sounds: normal, Palpation: moderate abdominal tenderness, in the right lower quadrant and left lower quadrant. 04:59 : Pelvic Exam: Speculum exam: no bleeding is noted, no cervicitis, bimanual exam reveals cervical motion tenderness, os that is open. Vital Signs: 04:01 BP 136 / 95; Pulse 116; Resp 19; Temp 99.1; Pulse Ox 100% on R/A; Weight 65.77 kg; ke1 Height 5 ft. 2 in. (157.48 cm); Pain 10/10; 04:30 Pain 3/10; ke1 04:51 BP 131 / 89; Pulse 98; Resp 18 S; Pulse Ox 100% on R/A; ha1 04:57 Pain 3/10; ke1 04:01 Body Mass Index 26.52 (65.77 kg, 157.48 cm) ke1 MDM: 03:55 Patient medically screened. ms3 04:59 Differential diagnosis: diverticulitis, non-specific abd pain, Ovarian cyst. ms3 06:49 Data reviewed: vital signs, nurses notes, lab test result(s), radiologic studies, CT ms3 scan, and as a result, I will discharge patient. I considered the following discharge prescriptions or medication management in the emergency department Medications were administered in the Emergency Department. See MAR. Counseling: I had a detailed discussion with the patient and/or guardian regarding: the historical points, exam findings, and any diagnostic results supporting the discharge/admit diagnosis, lab results, radiology results, the need for outpatient follow up, to return to the emergency department if symptoms worsen or persist or if there are any questions or concerns that arise at home. ED course: Discussed labs, CT results with patient. Discussed left breast mass and necessity of follow-up with patient in detail. Patient understands and agrees with plan. All questions were answered. Return precautions discussed include worsening symptoms, or any other concerns. On reevaluation patient's symptoms have improved, patient is alert and oriented x4, no apparent distress, nontoxic, speaking full sentences.. 07/23 03:59 Order name: CBC with Diff; Complete Time: 05:36 ms3 07/23 03:59 Order name: CMP; Complete Time: 05:36 ms3 07/23 03:59 Order name: Lipase; Complete Time: 05:36 ms3 07/23 03:59 Order name: Urine Microscopic Only; Complete Time: 06:42 ms3 07/23 06:06 Order name: Urine Dipstick-Ancillary; Complete Time: 06:42 EDMS 07/23 06:09 Order name: Urine --Ancillary (enter results) mw2 07/23 03:59 Order name: IV Saline Lock; Complete Time: 04:16 ms3 07/23 03:59 Order name: Labs collected and sent; Complete Time: 04:16 ms3 07/23 05:36 Order name: CT Abd/Pelvis - IV Contrast Only ms3 07/23 03:59 Order name: Urine Dipstick-Ancillary (obtain specimen); Complete Time: 06:08 ms3 07/23 03:59 Order name: Urine Test (obtain specimen); Complete Time: 06:08 ms3 Administered Medications: 04:16 Drug: NS 0.9% 1000 ml Route: IV; Rate: 1 bolus; Site: right antecubital; ke1 04:16 Drug: Zofran (Ondansetron) 4 mg Route: IVP; Site: right antecubital; ke1 04:57 Follow up: Pain 3/10; Response: Pain is decreased; Nausea is decreased ke1 04:16 Drug: morphine 4 mg Route: IVP; Infused Over: 4 mins; Site: right antecubital; ke1 04:30 Follow up: Pain 3/10 Adult; Response: Pain is decreased ke1 04:25 Drug: Pepcid (famotidine) 20 mg Route: IVP; Site: right antecubital; ke1 04:56 Follow up: Response: Marked relief of symptoms ke1 05:52 Drug: Ketorolac 10 mg 10 mg Route: IVP; Site: right antecubital; ke1 Disposition Summary: 07/23/22 06:48 Discharge Ordered Location: Home ms3 Condition: Stable ms3 Diagnosis - Lower abdominal pain, unspecified ms3 - UTI/ Urinary tract infection, site not specified ms3 - Left breast mass ms3 Followup: ms3 - With: Escobar, Domo, DO - When: 2 - 3 days - Reason: Recheck today's complaints Discharge Instructions: - Discharge Summary Sheet ms3 - Abdominal Pain, Adult ms3 - Urinary Tract Infection, Adult ms3 Forms: - Medication Reconciliation Form ms3 - Thank You Letter ms3 - Antibiotic Education ms3 - Prescription Opioid Use ms3 Prescriptions: - cefpodoxime 100 mg Oral Tablet - take 1 tablet by ORAL route every 12 hours for 10 days take with food; 20 ms3 tablet; Refills: 0, Product Selection Permitted Signatures: Dispatcher [employer] Tyrel Al DO DO ms3 Feliciaon Marie, RN RN ke1
--- NOTE | 2022-07-23 06:49 | ER ---
Nurse's Notes [facility] Name: Sakina Mancia Age: 42 yrs Sex: Female : 1980 Arrival Date: 07/23/2022 Time: 03:55 Bed 15 Private MD: Diagnosis: Lower abdominal pain, unspecified;UTI/ Urinary tract infection, site not specified;Left breast mass Presentation: 07/23 04:01 Chief complaint: EMS states: Patient woke up with excruciating on the lower abdomen, ke1 denies N/V. Coronavirus screen: Vaccine status: Patient reports receiving the 2nd dose of the covid vaccine. Ebola Screen: No symptoms or risks identified at this time. Initial Sepsis Screen: Does the patient meet any 2 criteria? HR > 90 bpm. Initial Sepsis Screen: Does the patient meet any 2 criteria? Does the patient have a suspected source of infection? No. Patient's initial sepsis screen is negative. Risk Assessment: Do you want to hurt yourself or someone else? Patient reports no desire to harm self or others. Onset of symptoms was July 23, 2022 at 03:00. 04:01 Method Of Arrival: EMS ke1 04:01 Acuity: SUSAN 3 ke1 Triage Assessment: 04:00 General: Behavior is appropriate for age. Pain: Complains of pain in lower abdomen. ke1 04:54 General: Appears. ke1 Historical: - Allergies: 04:05 No Known Allergies; ke1 - PMHx: 04:05 None; ke1 - Immunization history:: Client reports receiving the 2nd dose of the Covid vaccine. - Social history:: Smoking status: Patient denies any tobacco usage or history of. Screenin:20 Abuse screen: Denies threats or abuse. Denies injuries from another. Nutritional ha1 screening: No deficits noted. Tuberculosis screening: No symptoms or risk factors identified. 04:56 [facility] ED Fall Risk Assessment (Adult) History of falling in the last 3 months, ke1 including since admission No falls in past 3 months (0 pts) Confusion or Disorientation No (0 pts) Intoxicated or Sedated No (0 pts) Impaired Gait No (0 pts) Mobility Assist Device Used No (0 pt) Altered Elimination No (0 pt) Score/Fall Risk Level 0 - 2 = Low Risk. Assessment: 04:53 Reassessment: Patient unable to give urine at this time. ke1 Vital Signs: 04:01 BP 136 / 95; Pulse 116; Resp 19; Temp 99.1; Pulse Ox 100% on R/A; Weight 65.77 kg; ke1 Height 5 ft. 2 in. (157.48 cm); Pain 10/10; 04:30 Pain 3/10; ke1 04:51 BP 131 / 89; Pulse 98; Resp 18 S; Pulse Ox 100% on R/A; ha1 04:57 Pain 3/10; ke1 04:01 Body Mass Index 26.52 (65.77 kg, 157.48 cm) ke1 ED Course: 03:55 Patient arrived in ED. sb4 03:55 Tyrel Prince DO is Attending Physician. ms3 04:01 Feliciano Marie, RN is Primary Nurse. ke1 04:05 Triage completed. ke1 04:16 Inserted saline lock: 20 gauge in right antecubital area, using aseptic technique. by ke1 Kaur WINSTON. 04:25 Assist provider with pelvic exam: Set up pelvic tray. Performed by Tyrel Prince DO ha1 Vaginal packing inserted. Patient tolerated well. 04:55 Arm band placed on right wrist. ke1 06:47 Domo Escobar DO is Referral Physician. ms3 06:52 Bed in low position. ke1 07:01 IV discontinued. ke1 Administered Medications: 04:16 Drug: NS 0.9% 1000 ml Route: IV; Rate: 1 bolus; Site: right antecubital; ke1 04:16 Drug: Zofran (Ondansetron) 4 mg Route: IVP; Site: right antecubital; ke1 04:57 Follow up: Pain 3/10; Response: Pain is decreased; Nausea is decreased ke1 04:16 Drug: morphine 4 mg Route: IVP; Infused Over: 4 mins; Site: right antecubital; ke1 04:30 Follow up: Pain 3/10 Adult; Response: Pain is decreased ke1 04:25 Drug: Pepcid (famotidine) 20 mg Route: IVP; Site: right antecubital; ke1 04:56 Follow up: Response: Marked relief of symptoms ke1 05:52 Drug: Ketorolac 10 mg 10 mg Route: IVP; Site: right antecubital; ke1 Medication: 06:52 VIS not applicable for this client. ke1 Outcome: 06:48 Discharge ordered by . ms3 07:01 Discharged to home ambulatory. ke1 07:01 Condition: good 07:01 Discharge instructions given to patient. 07:02 Patient left the ED. ke1 Signatures: Tyrel Prince DO DO ms3 Feliciano Marie RN RN ke1 Kaur Arias RN RN ha1 Michelle Terrazas PA-C PA-C sb4 Corrections: (The following items were deleted from the chart) 04:57 04:30 Pain 3/10 Adult; Response: Pain is decreased ke1 ke1 07:01 06:51 Discharged to [facility] ke1
[2022-07-23 07:51] VITALS: TEMP 99.1; O2SAT 100
[2022-07-23 07:57] VITALS: BP 131/89
--- NOTE | 2022-07-23 20:15 | RAD REPORT ---
EXAM DESCRIPTION: CT ABDOMEN AND PELVIS WITH CONTRAST TECHNIQUE: Axial images were taken through the abdomen and pelvis after the administration of IV con trast. All CT scans at this facility use dose modulation, iterative reconstruction, and/or weight b ased dosing when appropriate to reduce radiation dose to as low as reasonably achievable CLINICAL HISTORY: ABD PAIN COMPARISON: None FINDINGS: Lower chest: Atelectatic changes noted at the bilateral lung bases. The visualized cardiac and posterior mediast inal structures are unremarkable. Note is made of an ovoid mass in the lower inner quadrant of the le ft breast measuring 1.0 x 1.7 cm on image 11. ABDOMEN: The liver appears unremarkable aside from a benign 2.1 cm hemangioma in the right hepatic lobe on jd ge 18. There is no other evidence for mass or intrahepatic biliary ductal dilatation. The gallblad jose raul appears unremarkable. There is no evidence for gallbladder wall thickening or pericholecystic flu id. The adrenal glands, pancreas and spleen are normal. The kidneys appear unremarkable. There is no evidence for hydronephrosis or stone. The large and small bowel of the abdomen and pelvis appears unremarkable. The appendix is visualiz ed adjacent to the cecum. No inflammatory changes are identified to suggest acute appendicitis. The aorta is normal in caliber. There is no evidence for pathologically enlarged adenopathy. PELVIS: The bladder appears unremarkable. There is no intrapelvic free air or free fluid. The uterus and ad nexal structures are unremarkable. No acute soft tissue abnormality is identified. No acute osseous abnormality is seen. IMPRESSION: No acute abnormality in the abdomen or pelvis. Ovoid mass in the lower inner quadrant of the left breast. 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 Diagnostic left breast workup is recommended for confirmation. Normal appendix. Electronically signed by: Joshua Joshua MD 07/23/2022 6:38 AM STACKER Due to temporary technical issues with the PACS/Fluency reporting system, reports are being signed by the in house radiologists without review as a courtesy to insure prompt reporting. The interpreting radiologist is fully responsible for the content of the report.
== END 2022-07-23 07:01 | disposition home or self-care (01) ==
LOC: ER 03:54
DX: N39.0 Urinary tract infection, site not specified (principal); N63.0 Unspecified lump in unspecified breast
CPT/HCPCS: 36415; 74177; 80053; 81003; 81015; 81025; 83690; 85025; 96374; 96375; 99284; J2405; J7030; Q9967